=== PATIENT | male | born 1965 ===

== ENCOUNTER 2020-04-05 14:55 | Outpatient (REF) | payer MEDICARE, SELFPAY | END 2020-04-05 14:56 | disposition home or self-care (01) | LOC: HO.LAB 14:55 | PROVIDERS: Visit Provider Internal Medicine | DX: Z20.828 Contact with and (suspected) exposure to other viral communicable diseases (principal) | CPT/HCPCS: C9803; U0003 ==

== ENCOUNTER 2021-01-13 10:12 | Emergency (ER) | payer MEDICARE, MEDICAID, SELFPAY ==
[2021-01-13 10:23] VITALS: BP 149/98; PULSE 90; RESP 16; TEMP 37.1; O2SAT 96; BMI 27.8
--- NOTE | 2021-01-13 10:41 | ED_ITS ---
HPI - General Adult General Chief complaint: General Medical Stated complaint: swelling Time Seen by Provider: 01/13/21 10:41 Source: patient Mode of arrival: ambulatory Limitations: no limitations History of Present Illness HPI narrative: 56 year old male no known medical problems presents to the ED with 3 days of discomfort to his left groin. He states he feels a bump there that is very painful. He states it has been getting progressively worse over the past few days. He denies fevers, chills, shortness of breath, malise, chest pain, back pain, dysuria, urinary frequency/urgency. Onset (ago): day(s) (3) Related Data Previous Rx's Medication Instructions Recorded cephalexin 500 mg capsule 500 mg PO Q6H 10 Days #40 cap 01/13/21 doxycycline monohydrate 100 mg 100 mg PO BID 10 Days #20 cap 01/13/21 capsule oxycodone 5 mg tablet 5 mg PO Q6H PRN #10 tab 01/13/21 Allergies Allergy/AdvReac Type Severity Reaction Status Date / Time No Known Allergies Allergy Verified 01/13/21 10:19 [No Known Allergies*] Review of Systems Review of Systems: Constitutional : No Weight loss, No Fever, No Chills, No Night Sweats, No Fatigue, NoMalaise Cardiovascular : No Chest Pain, No SOB, No Dyspnea on Exertion, No Orthopnea, NoEdema, No Palpitations Respiratory : No Cough, No Sputum, No Wheezing, No Dyspnea Gastrointestinal : No Nausea, No Vomiting, No abdominal pain, No Diarrhea, Genitourinary : No irregular bleeding, No Dysuria, No Urinary Frequency, No Hematuria,No Urinary Incontinence, No Urgency, No Flank Pain Musculoskeletal : No joint pain, No Myalgias, No Joint Swelling, + left sided groin pain with swelling/redness Skin : No Skin Lesions, No rash Neuro : No Weakness, No Numbness, No Paresthesias, No Loss of Consciousness, NoDizziness, No Headache Heme/Lymph: No Bruising, No Bleeding,No Lymphadenopathy Endocrine : No Polyuria, No Polydipsia, No Temperature Intolerance Yes all other systems are reviewed and are negative [facility] Past Medical History Attestation statement: The following information was validated with the patient. Medical History HTN (hypertension) Social History Social History Alcohol intake: never Patient Tobacco Use Status: Current everyday Tobacco user Use of substances other than those prescribed or required for medical reasons: Yes Substance Use Type: Marijuana Substance Use Frequency: Occasionally Advance Directives: No Advance Directives Information Provided: No Physical Exam Vital Signs: Vital Signs: Last Vital Signs Temp 98.7 F 01/13/21 10:23 Pulse 90 01/13/21 10:23 Resp 16 01/13/21 10:23 BP 149/98 H 01/13/21 10:23 Pulse Ox 96 01/13/21 10:23 Body Mass Index 27.8 vital signs have been reviewed as normal and appeared to be correct. Blood pressure normal. Heart rate normal. Respiration rate normal. Temperature normal. Oxygen saturation normal. Appearance: Alert. Oriented X3. No acute distress. Head: Normal external exam. Normocephalic. Atraumatic. CVS: Normal heart rate and rhythm. Respiratory: No respiratory distress. Painless inspiration. Back: Full range of motion noted. Skin: Skin warm and dry. Normal skin color. Normal skin turgor. + fluctuant 2 cm x 2 cm area in the left groin with overlying erythema and calor. No streaking/induration/purulent drainage noted. No additional lesions/rashes/lacerations noted. Extremities: Extremities exhibit normal range of motion. Extremities nontender. Neuro: Oriented X 3. No motor deficit. No sensory deficit. No focal neuro deficits noted. Course Course Course Narrative: 1056- This is a 56-year-old male who presents to the emergency department from 3 days of left-sided groin pain and tenderness. Which has been progressively worsening. Upon physical examination there is a 2 cm x 2 cm fluctuant area, likely an abscess noted in the left groin region, with overlying erythema and calor. There is no streaking, and patient's vital signs are normal. This is likely a localized infection. Plan at this time is to do an incision and drainage. He will be started on Keflex and doxycycline. He will also be discharge him with these antibiotics. He has been instructed on warning signs such as fevers, chills, increasing redness, or tenderness to the area. He has been instructed to return emergency department new or worsening symptoms Procedures Abscess I/D Site: other (groin) Side (if applicable): left Local Anesthetic: lidocaine 1% Amount of anesthesia used (mL): 5 Technique: incised with blade Amount of fluid expressed (mL): 5 Sent for culture/gram staining?: No Irrigation: Yes Packing used?: none Complications: other (none) Medical Decision Making Medical Records Medical records reviewed: Yes I reviewed the patient's medical records. Discharge Plan Discharge Clinical Impression: Abscess Patient Disposition: Home, Self-Care Instructions: Abscess (ED), Abscess Incision and Drainage (DC), Incision and Drainage (ED) Additional Instructions: Take antibiotics as prescribed. Do not skip any doses. Doxycycline causes skin sensitivity, especially in the sun. Stay out of the sun. Drink plenty of fluids Change the dressing 2x a day Follow-up with your primary care provider Return to the emergency department new or worsening symptoms, or if he develops fevers, chills, worsening swelling, and/or tenderness to the area. Prescriptions: New doxycycline monohydrate 100 mg capsule 100 mg PO BID 10 Days Qty: 20 RF: 0 cephalexin 500 mg capsule 500 mg PO Q6H 10 Days Qty: 40 RF: 0 oxycodone 5 mg tablet 5 mg PO Q6H PRN (Reason: pain) Qty: 10 RF: 0 Referrals: Physician,Unknown J [Primary Care Provider] - 2 days (your pcp) Print Language: Tongan
[2021-01-13] MEDS: cephALEXin 500 MG CAPSULE PO (11:02)
[2021-01-13] MEDS: Lidocaine HCl 1 % MPF 5 ML VIAL SUBCUT (11:02)
--- NOTE | 2021-01-13 11:03 | PC.NURSE ---
patient a&ox3, medicated with po antibiotics, PA to administer lido to area.
== END 2021-01-13 12:10 | disposition home or self-care (01) ==
PROVIDERS: Emergency Provider Emergency Medicine Emergency Medical Services
DX: L02.214 Cutaneous abscess of groin (principal)
CPT/HCPCS: 10060; 99284

== ENCOUNTER 2021-08-16 18:39 | Emergency (ER) | payer MEDICARE, MEDICAID, SELFPAY ==
[2021-08-16 18:47] VITALS: BP 142/100; PULSE 113; RESP 16; TEMP 37.1; O2SAT 94
[2021-08-16 18:52] VITALS: BP 136/96; PULSE 112; RESP 18; TEMP 37.3; O2SAT 96; BMI 26.5
--- NOTE | 2021-08-16 19:13 | HO.SUDE ---
CARE Team met with pt to offer SUDE and substance use resources. Pt indicated that he would like to meet with a recovery analyst and get substance use resources.
--- NOTE | 2021-08-16 19:29 | MHC.RECOVSUP ---
? Reason for consult:Recovery Support o Current location:ED 17 o Identified substance use concern:Heroin - Overdose - Withdrawal - Seeking ATS (detox) - Support ? Intervention:P o Community resources provided o Harm reduction discussion ? Plan: o Referral to [facility] o Patient to follow up with [facility] after discharge ? Additional information:Patient refuses to go to detox.Gave patient community resources and referred patient to the [facility] and [facility]
[2021-08-16 19:30] VITALS: BP 140/95; PULSE 111; RESP 12; O2SAT 95
--- NOTE | 2021-08-16 19:31 | PC.NURSE ---
pt is alert and oriented. pt stated that he been sniffing heroin today, he report that he was kicked out of the program today. breathing equally unlabored. no signs of acute distress notice. pt on continuos cardiac monitoring. changed into safety gown. wanded by security
--- NOTE | 2021-08-16 19:38 | ED.OVERDOSE ---
HPI - Overdose General Chief Complaint: Overdose Stated Complaint: OVERDOSE Time Seen by Provider: 08/16/21 18:59 Source: patient and EMS Mode of arrival: EMS Limitations: no limitations History of Present Illness HPI Narrative: Patient comes to the emergency room complaining of an accidental overdose of heroin. Patient states he used about 4 bags of heroin around 16:00. [place], a bystander called 911. EMS gave him Narcan x2. Denies any other substance abuse. Patient states this was an accident, denies suicidal or homicidal ideation Related Data Previous Rx's Medication Instructions Recorded cephalexin 500 mg capsule 500 mg PO Q6H 10 Days #40 cap 01/13/21 doxycycline monohydrate 100 mg 100 mg PO BID 10 Days #20 cap 01/13/21 capsule oxycodone 5 mg tablet 5 mg PO Q6H PRN #10 tab 01/13/21 Allergies Allergy/AdvReac Type Severity Reaction Status Date / Time No Known Allergies Allergy Verified 01/13/21 10:19 [No Known Allergies*] Review of Systems Review of Systems: Constitutional : No Weight loss, No Fever, No Chills, No Night Sweats, No Fatigue, No Malaise, feeling somnolent ENT/Mouth : No Hearing loss, No Ear Pain, No Nasal Congestion, No Sinus Pain, No Hoarseness, No sore throat, No Rhinorrhea, No Swallowing Difficulty Eyes: No Eye Pain, No Swelling, No Redness, No Foreign Body, No Discharge, No Vision Changes Cardiovascular : No Chest Pain, No SOB, No Dyspnea on Exertion, No Orthopnea, No Edema, No Palpitations Respiratory : No Cough, No Sputum, No Wheezing, No Smoke Exposure, No Dyspnea Gastrointestinal : No Nausea, No Vomiting, No Diarrhea, No Constipation, No abdominal Pain, No Hematochezia, No Melena Genitourinary : no irregular bleeding, No Dysuria, No Urinary Frequency, No Hematuria, No Urinary Incontinence, No Urgency, No Flank Pain, No Urinary Flow Changes, No Hesitancy Musculoskeletal : No joint pain, No Myalgias, No Joint Swelling Skin : No Skin Lesions, No rash Neuro : No Weakness, No Numbness, No Paresthesias, No Loss of Consciousness, No Dizziness, No Headache Psych : No Anxiety/Panic, No Depression, No SI/HI/AH/VH, No Social Issues, Heme/Lymph: No Bruising, No Bleeding,No Lymphadenopathy Endocrine : No Polyuria, No Polydipsia, No Temperature Intolerance [facility] Past Medical History Medical History (Updated 08/16/21 @ 19:42 by Sweta Moore MD) HTN (hypertension) Substance abuse Social History Social History Alcohol intake: never Patient Tobacco Use Status: Current everyday Tobacco user Substance Use Type: Marijuana Advance Directives: No Advance Directives Information Provided: No Physical Exam Vital Signs: Vital Signs: Last Vital Signs Temp 99.1 F 08/16/21 18:52 Pulse 111 H 08/16/21 19:30 Resp 12 08/16/21 19:30 BP 140/95 H 08/16/21 19:30 Pulse Ox 95 08/16/21 19:30 BMI result Body Mass Index 26.5 Const: Other: Appearance: Alert. Oriented X3. No acute distress. Somnolent Eyes: Pupils equal, round and reactive to light. ENT: Pharynx normal. Neck: Normal inspection. Neck supple. No lymph nodes noted. No crepitus CVS: Normal heart rate and rhythm. Pulses normal. Normal S1 and S2 Respiratory: No respiratory distress. Breath sounds normal. No Wheezing. No rales Abdomen: Soft and nontender. No rigidity. No distention. Skin: Skin warm and dry. Normal skin color. Normal skin turgor. Extremities: No lower extremity edema. No Lacerations. No Rash Neuro: Oriented X 3. No motor deficit. No sensory deficit. Moving all extremities. No slurred speech. CN 2 through 12 grossly intact Psych: calm, cooperative, normal affect Course Course Course Narrative: The care team did the SUDE evaluation. Patient would like some resources, at this time he is not interested in detox. Patient was supposed to go to [facility] yesterday. Also, the motor coach bus driver spoke to the patient, he was given resources for a Suboxone clinic. Patient was given intranasal naloxone for home use. Patient has been in the emergency room for over 2 hours, patient remains alert, awake, oxygen saturation 95% on room air. Discharge Plan Discharge Clinical Impression: Drug overdose Patient Disposition: Home, Self-Care Instructions: Adult Overdose (ED) Additional Instructions: Please follow-up with your primary care physician tomorrow. If you have any worsening or new symptoms, please return to the emergency room or call 911 Prescriptions: No Action doxycycline monohydrate 100 mg capsule 100 mg PO BID 10 Days Qty: 20 0RF cephalexin 500 mg capsule 500 mg PO Q6H 10 Days Qty: 40 0RF oxycodone 5 mg tablet 5 mg PO Q6H PRN (Reason: pain) Qty: 10 0RF
[2021-08-16 21:33] VITALS: BP 159/97; PULSE 113; RESP 14; O2SAT 97
[2021-08-16] MEDS: Naloxone HCl Nasal TAKE HOME 4 MG SPRAY NOSTRILALT (21:34)
== END 2021-08-16 21:50 | disposition home or self-care (01) ==
PROVIDERS: Emergency Provider Emergency Medicine
DX: T40.1X1A Poisoning by heroin, accidental (unintentional), initial encounter (principal); F11.10 Opioid abuse, uncomplicated; Y92.521 Bus station as the place of occurrence of the external cause; I10 Essential (primary) hypertension
CPT/HCPCS: 99283; 99284

== ENCOUNTER 2024-05-06 11:07 | Emergency (ER) | payer MEDICARE, SELFPAY ==
[2024-05-06] VITALS (12 sets, daily range): BP systolic 164–230; BP diastolic 95–136; PULSE 71–89; RESP 10–20; TEMP 36.4–36.9; O2SAT 95–98; BMI 28.4
--- NOTE | 2024-05-06 11:48 | ED_ITS ---
HPI - General Adult General Chief complaint: Recheck/Abnormal Lab/Rx Stated complaint: High BP Time Seen by Provider: 05/06/24 16:03 Source: patient Mode of arrival: ambulatory Limitations: no limitations History of Present Illness ED Provider: Dr. Sweta Moore HPI narrative: Patient comes to the emergency room accompanied by staff from a residential program. According to the patient, he has noted that for the last few days, his blood pressure has been high. Patient states that he has been struggling with high blood pressure for several years. Patient states that approximately 3 weeks ago there were some changes to his medication. Patient is unsure if he has new medications or higher dose. Currently taking hydrochlorothiazide 12.5 mg and losartan 50 mg. Patient states that earlier today he had a bit of a headache but now it is gone, denies chest pain or shortness of breath, denies any lower extremity edema. Patient denies using drugs. Patient states that the last time he used heroin or cocaine was approximately 3 months ago. Related Data Previous Rx's ?Medication ?Instructions ?Recorded cephalexin 500 mg capsule 500 mg PO Q6H 10 days #40 caps 01/13/21 doxycycline monohydrate 100 mg 100 mg PO BID 10 days #20 caps 01/13/21 capsule oxycodone 5 mg tablet 5 mg PO Q6H PRN pain #10 tabs 01/13/21 hydrochlorothiazide 25 mg tablet 25 mg PO DAILY #30 tabs 05/06/24 labetalol 100 mg tablet 100 mg PO BID #60 tabs 05/06/24 Allergies Allergy/AdvReac Type Severity Reaction Status Date / Time No Known Allergies Allergy Verified 05/06/24 11:46 [No Known Allergies*] Review of Systems 2 Review of Systems: Constitutional : No Weight loss, No Fever, No Chills, No Night Sweats, No Fatigue, No Malaise ENT/Mouth : No Hearing loss, No Ear Pain, No Nasal Congestion, No Sinus Pain, No Hoarseness, No sore throat, No Rhinorrhea, No Swallowing Difficulty Eyes: No Eye Pain, No Swelling, No Redness, No Foreign Body, No Discharge, No Vision Changes Cardiovascular : No Chest Pain, No SOB, No Dyspnea on Exertion, No Orthopnea, No Edema, No Palpitations, complaining of high blood pressure. Respiratory : No Cough, No Sputum, No Wheezing, No Smoke Exposure, No Dyspnea Gastrointestinal : No Nausea, No Vomiting, No Diarrhea, No Constipation, No abdominal Pain, No Hematochezia, No Melena Genitourinary : no irregular bleeding, No Dysuria, No Urinary Frequency, No Hematuria, No Urinary Incontinence, No Urgency, No Flank Pain, No Urinary Flow Changes, No Hesitancy Musculoskeletal : No joint pain, No Myalgias, No Joint Swelling Skin : No Skin Lesions, No rash Neuro : No Weakness, No Numbness, No Paresthesias, No Loss of Consciousness, No Dizziness, No Headache Psych : No Anxiety/Panic, No Depression, No SI/HI/AH/VH, No Social Issues, Heme/Lymph: No Bruising, No Bleeding,No Lymphadenopathy Endocrine : No Polyuria, No Polydipsia, No Temperature Intolerance [facility] Past Medical History Medical History Substance abuse HTN (hypertension) Social History Social History Alcohol intake: never Patient Tobacco Use Status: Current everyday Tobacco user Smoked in Last 30 Days: Yes Use of substances other than those prescribed or required for medical reasons: Yes Substance Use Type: Heroin Substance Use Frequency: Daily Advance Directives: No Advance Directives Information Provided: Yes Physical Exam ED Vital Signs: Vital Signs - 24 hr 05/06/24 11:45 05/06/24 15:29 05/06/24 16:18 Temperature 98.3 F 98.4 F Pulse Rate 89 81 82 Respiratory Rate 16 16 Blood Pressure 195/116 H 210/125 H 230/136 H Pulse Oximetry 95 98 Oxygen Delivery Method Room Air Room Air 05/06/24 16:30 05/06/24 17:10 05/06/24 17:29 Temperature Pulse Rate 88 Respiratory Rate 20 Blood Pressure 222/134 H 199/136 H 192/118 H Pulse Oximetry 98 Oxygen Delivery Method 05/06/24 18:40 05/06/24 19:19 05/06/24 19:54 Temperature 98.3 F Pulse Rate 73 71 Respiratory Rate 10 L 11 L Blood Pressure 201/127 H 182/117 H 190/116 H Pulse Oximetry 97 96 Oxygen Delivery Method Room Air Room Air 05/06/24 20:47 Temperature Pulse Rate 71 Respiratory Rate Blood Pressure 187/110 H Pulse Oximetry Oxygen Delivery Method BMI result Body Mass Index 28.4 Const Other: Appearance: Alert. Oriented X3. No acute distress. Eyes: Pupils equal, round and reactive to light. ENT: Pharynx normal. Neck: Normal inspection. Neck supple. No lymph nodes noted. No crepitus CVS: Normal heart rate and rhythm. Pulses normal. Normal S1 and S2 Respiratory: No respiratory distress. Breath sounds normal. No Wheezing. No rales Abdomen: Soft and nontender. No rigidity. No distention. Skin: Skin warm and dry. Normal skin color. Normal skin turgor. Extremities: No lower extremity edema. No Lacerations. No Rash Neuro: Oriented X 3. No motor deficit. No sensory deficit. Moving all extremities. No slurred speech. CN 2 through 12 grossly intact Psych: calm, cooperative, normal affect Course Course Course Narrative: RME, this is a rapid medical exam performed by Dangelo tSevens please refer to primary provider for complete H&P- 59-year-old male presents for evaluation of high blood pressure. He was presenting from a program, his blood pressure today was 195/116 in triage. He reportedly took his blood pressure medication this morning. Per his records he was taking losartan, amlodipine, hydrochlorothiazide, as well as lisinopril. He complains of a mild headache Medications Administered Discontinued Medications Generic Name Dose Route Start Last Admin Trade Name Blasq PRN Reason Stop Dose Admin Amlodipine Besylate 10 mg 05/06/24 18:29 05/06/24 18:40 Amlodipine Besylate 10 Mg Tablet PO 05/06/24 18:30 10 mg ONCE ONE Administration Protocol Labetalol HCl 100 mg 05/06/24 16:13 05/06/24 16:18 Labetalol Hcl 100 Mg Tablet PO 05/06/24 16:14 100 mg ONCE ONE Administration Protocol Labetalol HCl 10 mg 05/06/24 19:54 05/06/24 20:47 Labetalol Hcl 100 Mg/20 Ml Vial IVPUSH 05/06/24 19:55 10 mg ONCE ONE Administration Medical Decision Making Medical Decision Making [facility] Narrative: My interpretation of EKG: Normal sinus rhythm, heart rate 80, no ST segment depression or elevation, no T-wave inversion, QTC 468 Patient states that he is compliant with his medications. Takes hydrochlorothiazide 12.5 mg and losartan 50 mg. Current blood pressure 210/125, states that the headache nearly resolved. Patient being given 100 mg p.o. labetalol. Discussed with the patient that if p.o. medications do not work, we may need IV meds and potentially admission/observation. Patient agrees with plan. My interpretation of labs: No significant abnormality in patient's hematology, chemistry, troponin negative. After p.o. metoprolol, patient's blood pressure did not improve at all, current blood pressure 192/118. Heart rate 88. Patient getting p.o. amlodipine. If this does not help patient's blood pressure, we will give IV meds Patient agrees with plan Patient's blood pressure initially improved but slowly went back to the 200s. Patient was given now IV labetalol, patient's blood pressure in the 200s, heart rate in the 80s Patient's blood pressure was 65/94. Patient asymptomatic. Patient ready for discharge. Patient will need additional blood pressure medications. Differential Diagnosis Differential Diagnoses: The differential diagnosis associated with the presentation includes (Chronic hypertension, hypertensive urgency) Admission/Observation Consideration of admission/observation: Escalation of care including admission/observation considered (Given patient's high blood pressure, observation/admission was considered) Lab Data MDM Lab Attestation statement: I reviewed the patient's lab results. 05/06/24 12:10 05/06/24 12:10 Labs: Lab Results 05/06/24 05/06/24 Range/Units 12:10 16:19 WBC 8.9 (4.8-10.8) X10*3/uL RBC 4.51 L (4.60-5.80) X10*6/uL Hgb 13.6 L (14.0-18.0) g/dl Hct 41.9 L (42.0-52.0) % MCV 92.9 (80.0-98.0) fL MCH 30.2 (27.0-33.0) pg MCHC 32.5 (31.0-36.0) g/dl RDW 11.6 (11.0-16.0) % Plt Count 237 (160-400) X10*3/uL MPV 10.1 (9.4-12.4) fL Immature Gran % (Auto) 0.3 (0.0-0.4) % Neut % (Auto) 66.2 (45-73) % Lymph % (Auto) 16.2 L (20-40) % [place] % (Auto) 8.3 (2-11) % Eos % (Auto) 8.3 H (0-4) % Baso % (Auto) 0.7 (0-2) % Lymph # (Auto) 1.4 (1.2-4.9) X10*3/uL [place] # (Auto) 0.7 (0.1-1.2) X10*3/uL Eos # (Auto) 0.7 H (0.0-0.4) X10*3/uL Baso # (Auto) 0.1 (0.0-0.2) X10*3/uL Abs Immat Gran (auto) 0.03 (0.00-0.03) X10*3/uL Absolute Neuts (auto) 5.9 (2.0-8.3) x10*3/uL Absolute Nucleated RBC 0.000 (0.0-0.012) X10*3/uL Nucleated RBC % (auto) 0.0 (0.0-0.2) /100WBC PT 11.5 (10.9-12.4) SEC INR 1.0 (0.9-1.1) Sodium 142 (135-145) mmol/L Potassium 4.8 (3.3-5.1) mmol/L Chloride 106 (96-108) mmol/L Carbon Dioxide 27 (22-29) mmol/L Anion Gap 14 (12-20) BUN 25 H (9-16) mg/dL Creatinine 1.43 H (0.5-1.4) mg/dL Estim Creat Clear Calc 49.1 Estimated GFR 51 Random Glucose 77 (60-115) mg/dL Calcium 8.9 (8.4-10.2) mg/dL Total Bilirubin 0.9 (0.0-1.0) mg/dL AST 26 (5-37) U/L ALT 21 (0-40) U/L Alkaline Phosphatase 107 (39-117) U/L Troponin I High Sens 3.6 (<3.5-35.0) ng/L Total Protein 7.6 (6.5-8.0) g/dL Albumin 4.0 (3.5-5.0) g/dL Urine Opiates Screen Not Detected (Not Detect) Ur Buprenorphine Scrn Not Detected (Not Detect) ng/mL Ur Oxycodone Screen Not Detected (Not Detect) ng/mL Urine Methadone Screen Positive H (Not Detect) ng/mL Urine Fentanyl Screen Not Detected (Not Detect) Ur Barbiturates Screen Not Detected (Not Detect) Ur Phencyclidine Scrn Not Detected (Not Detect) Ur Amphetamines Screen Not Detected (Not Detect) U Benzodiazepines Scrn Not Detected (Not Detect) Urine Cocaine Screen Not Detected (Not Detect) U Marijuana (THC) Screen Not Detected (Not Detect) Critical Care Time Critical Care Time Critical Care Time: Yes Total Critical Care Time: 75 Attestation: I have personally provided critical care time. Time includes review of lab data, radiology results, discussion with consultants, and monitoring for potential decompensation. Intervention performed as documented. Discharge Plan Discharge Clinical Impression: Chronic hypertension Patient Disposition: Home, Self-Care Instructions: Hypertension (ED) Additional Instructions: Increase hydrochlorothiazide to 25 mg daily, keep taking losartan as prescribed. Add labetalol 100 mg twice a day. You need close follow-up with your primary care physician. Make sure that you keep a log of your blood pressures to show your primary care physician. Please follow-up with your primary care physician tomorrow. If you have any worsening or new symptoms, please return to the emergency room or call 911 Prescriptions: New hydrochlorothiazide 25 mg tablet 25 mg PO DAILY Qty: 30 1RF labetalol 100 mg tablet 100 mg PO BID Qty: 60 0RF No Action doxycycline monohydrate 100 mg capsule 100 mg PO BID 10 Days Qty: 20 0RF cephalexin 500 mg capsule 500 mg PO Q6H 10 Days Qty: 40 0RF oxycodone 5 mg tablet 5 mg PO Q6H PRN (Reason: pain) Qty: 10 0RF Print Language: Polish
--- NOTE | 2024-05-06 11:51 | ECG_ITS ---
Test Reason : pain Blood Pressure : */* mmHG Vent. Rate : 80 BPM Atrial Rate : 80 BPM P-R Int : 154 ms QRS Dur : 80 ms QT Int : 406 ms P-R-T Axes : 66 64 99 degrees QTcB Int : 468 ms Normal sinus rhythm Minimal voltage criteria for LVH, may be normal variant ( Sokolow-Kumar ) Nonspecific ST and T wave abnormality Prolonged QT Abnormal ECG When compared with ECG of 01-Jul-2017 12:05, ST now depressed in Lateral leads Nonspecific T wave abnormality no longer evident in Anterior leads Nonspecific T wave abnormality now evident in Lateral leads Referred By: Kd Stevens Electronically Signed By: LEN AMEZQUITA
[2024-05-06 12:15] LABS: MANUAL DIFF FLAG NO
[2024-05-06 12:19] LABS: Basophils Absolute Auto 0.1 X10*3/uL (0.0-0.2); Basophils Percent Auto 0.7 % (0-2); Eosinophils Absolute Auto 0.7 X10*3/uL (0.0-0.4); Eosinophils Percent Auto 8.3 % (0-4); Hematocrit 41.9 % (42.0-52.0); Hemoglobin 13.6 g/dl (14.0-18.0); Imm Gran Abs Auto 0.03 X10*3/uL (0.00-0.03); Imm Gran Pct Auto 0.3 % (0.0-0.4); Lymphocytes Absolute Auto 1.4 X10*3/uL (1.2-4.9); Lymphocytes Percent Auto 16.2 % (20-40); Mean Corpuscular HGB Conc 32.5 g/dl (31.0-36.0); Mean Corpuscular Hemoglobin 30.2 pg (27.0-33.0); Mean Corpuscular Volume 92.9 fL (80.0-98.0); Mean Platelet Volume 10.1 fL (9.4-12.4); Monocytes Absolute Auto 0.7 X10*3/uL (0.1-1.2); Monocytes Percent Auto 8.3 % (2-11); Neutrophils Absolute Auto 5.9 x10*3/uL (2.0-8.3); Neutrophils Percent Auto 66.2 % (45-73); Platelet Count 237 X10*3/uL (160-400); Red Blood Count 4.51 X10*6/uL (4.60-5.80); Red Cell Distribution Width 11.6 % (11.0-16.0); White Blood Count 8.9 X10*3/uL (4.8-10.8)
[2024-05-06 12:22] LABS: Prothrombin Time 11.5 SEC (10.9-12.4)
[2024-05-06 12:36] LABS: Alanine Aminotransferase 21 U/L (0-40); Alkaline Phosphatase 107 U/L (39-117); Anion Gap 14 (12-20); Aspartate Amino Transferase 26 U/L (5-37); Bilirubin Total 0.9 mg/dL (0.0-1.0); Blood Urea Nitrogen 25 mg/dL (9-16); Calcium 8.9 mg/dL (8.4-10.2); Carbon Dioxide 27 mmol/L (22-29); Chloride 106 mmol/L (96-108); Creatinine Clr Calc Pharmacy 49.1; Estimated Glomerular Filt Rate 51; Glucose Random 77 mg/dL (60-115); Potassium 4.8 mmol/L (3.3-5.1); Sodium 142 mmol/L (135-145); Total Protein 7.6 g/dL (6.5-8.0)
[2024-05-06 12:39] LABS: Troponin-I High Sensitivity 3.6 ng/L (<3.5-35.0)
--- NOTE | 2024-05-06 15:57 | PC.NURSE ---
Pt NSR on laboratory monitor, significantly hypertensive. Reporting chest pain 10/14. Alert and oriented, breathing even and unlabored.
[2024-05-06] MEDS: Labetalol HCL 100 MG TABLET PO (16:18)
[2024-05-06 16:34] LABS: Amphetamine Screen Urine Not Detected (Not Detect); Barbiturates, Urine Not Detected (Not Detect); Benzodiazepines Screen Urine Not Detected (Not Detect); Buprenorphine Scr Not Detected (Not Detect); Cannabinoid Screen Urine Not Detected (Not Detect); Cocaine Screen Urine Not Detected (Not Detect); Fentanyl, urine Not Detected (Not Detect); Methadone Screen, Urine Positive (Not Detect); Opiate Screen Urine Not Detected (Not Detect); Oxycodone Screen Urine Not Detected (Not Detect); Phencyclidine Screen Urine Not Detected (Not Detect)
[2024-05-06] MEDS: amLODIPine Besylate 10 MG TABLET PO (18:40)
--- OUTSIDE RECORDS SUMMARY | 2024-05-06 19:19 | XMS_ITS ---
Author Organization [facility] Address [address], [place] [id number] Care Team Providers Care Director Of Medical Education Name Role Phone [facility]-Adult Medicine Primar y Care Provider Unavailable Maricarmen Best Unavailable [phone] [facility], Adult Medicine Clinic Unavailable Unava ilQuoc Cisneros Unavailable [phone] Medications Medication SIG (Take, Route, Frequency, Duration) Notes Start Date End Date Status loratadine 10 mg 1 tab(s) orally once a day for 30 day(s) 07/28/2017 Active traZODone 50 mg 1 tab(s) orally 3 ti mes a day Active Ventolin HFA 90 mcg/inh 2 puff(s) inhale d 4 times a day for 30 day(s) 07/28/2017 Active Singulair 10 mg 1 tab(s) orally once a day for 30 day(s) 07/28/2017 Active Flovent HFA CFC free 110 mcg/inh 2 puff(s) inhaled 2 times a day every day for 30 day(s) 07/28/2017 Acti ve Nicoderm C-Q Clear 21 mg/24 hr 1 PATCH transdermally once a day for 30 day(s) 07/28/2017 Active Metoprolol Tartrate 50 mg 1 tab(s) orall y 2 times a day for 30 day(s) Active amLODIPine 10 mg 1 tab(s) orally once a day for 30 day(s) Active Encounters Encounter Location Date Provider Diagnosis [facility] [address] [place] [phone] 09/11/2023 Quoc Orta Plan Of Treatment No Information Progress Notes * Louis WAYNEDOB:1964 (58 yo M)Acc No.[id number]:09/11/2023 Case Management Patient:Louis De La Torre Provider:?Quoc Guo :1965???Age:58 Y???Sex:Male Jake e:09/11/2023 Address:[address] [place] [address] Pcp:[facility]Ad ult Medicine [facility] Subjective: * Chief Complaints: * ??? * HPI: ???Social Service:?Date of encounter?09/11/23.?Referral Source?walk-in, self.?Interpretation for medical provider?housing.?Follow-up Required:?yes.?Pt comprehension?Pt agrees with plan, Patient understood process and assisted with process.?Action taken (old)?NONE.? * Medical History:? * Medications:?Taking traZODon e 50 mg tablet 1 tab(s) orally 3 times a day , Taking loratadine 10 mg tablet 1 tab(s) orally once a day , Taking Nicoderm C-Q Clear 21 mg/24 hr film, extended release 1 PATCH transdermally once a day , Taking Metoprolol Tartrate 50 mg tablet 1 tab(s) orally 2 times a day , Taking amLODIPine 10 mg tablet 1 tab(s) orally once a day , Taking Ventolin HFA 90 mcg/inh aerosol 2 puff(s) inhaled 4 times a day , Taking Flovent HFA CFC free 110 mcg/inh aerosol 2 puff(s) inhaled 2 times a day every day , Taking Singulair 10 mg tablet 1 tab(s) orally once a day Objective: Assessment: Plan: * Treatment: * Images: Billing Information: * Visit Code:? * Procedure Codes:? Care Plan Details* * Sign off status: Completed true * Provider:?Quoc Guo Date:?09/11/2023 Generated for Javi oconnell/Cynthia/Francisco on:?05/06/2024 07:19 PM EST History and Physical Notes * HPI (History of Present Illness) Category Sub-Category Detail Notes Social Service Referral Source walk-in, self Interpretation for medical provider hous ing Action taken (old) NONE Follow-up Required: yes Pt comprehension Pt agrees with plan, Patient understood process and assisted with process Date of encounter 09/11/23
--- OUTSIDE RECORDS SUMMARY | 2024-05-06 19:19 | XMS_ITS ---
Author Organization [facility] Address [address], [place] [phone] Care Team Providers Care Assistant Professor Of Radiology Name Role Phone [facility], [facility]-Adult Medicine Primar y Care Provider Unavailable Maricarmen Best Unavailable [phone] [facility], Adult Medicine Clinic Unavailable Unava ilKristie Charles Unavailable Encounters Encounter Location Date Provider Diagnosis [facility] [address] [place] [phone] 01/28/2024 Kristie Galo Plan Of Treatment No Information Progress Notes * WAYNE LouisDOB:1964 (59 yo M)Acc No.[id number]:01/28/2024 Case Management Patient:?TONE Louis Provider:?Kristie Galo :1965???Age:59 Y???Sex:Male Jake e:01/28/2024 Address:[address] [place], [place] [phone] Pcp:[facility]-Ad ult Medicine [facility] Subjective: * Chief Complaints: * ??? * Medical History:? Objective: Assessment: Plan: * Treatment: * Images: Billing Information: * Visit Code:? * Procedure Codes:? Care Plan Details* * Electronic signature of Danilo Galo on 05/06/2024 at 07:19 PM EST Sign off status: Pending * Provider:Ez Galo Date:? Generated for Javi oconnell/Cynthia/eTransmitting on:?05/06/2024 07:19 PM EST
--- OUTSIDE RECORDS SUMMARY | 2024-05-06 19:19 | XMS_ITS ---
Author Organization [facility] Address [address] [place], [place] [phone] Care Team Providers Care Spout Liner Helper Name Role Phone [facility]-Adult Medicine Primar y Care Provider Unavailable Maricarmen Best Unavailable [phone] [facility], Adult Medicine Clinic Unavailable Sammieva Kristie Parker Unavailable REASON FOR VISIT make appoiment Medications Medication SIG (Take, Route, Frequency, Duration) Notes Start Date End Date Status Singulair 10 mg 1 tab(s) orally once a day for 30 day(s) 07/28/2017 Active Metoprolol Tartrate 50 mg 1 tab(s) orall y 2 times a day for 30 day(s) Active Ventolin HFA 90 mcg/inh 2 puff(s) inhale d 4 times a day for 30 day(s) 07/28/2017 Active Flovent HFA CFC free 110 mcg/inh 2 puff(s) inhaled 2 times a day every day for 30 day(s) 07/28/2017 Acti ve amLODIPine 10 mg 1 tab(s) orally once a day for 30 day(s) Active Nicoderm C-Q Clear 21 mg/24 hr 1 PATCH transdermally once a day for 30 day(s) 07/28/2017 Active traZODone 50 mg 1 tab(s) orally 3 ti mes a day Active loratadine 10 mg 1 tab(s) orally once a day for 30 day(s) 07/28/2017 Active Encounters Encounter Location Date Provider Diagnosis [facility] [address] [place] [phone] 01/27/2024 Kristie Galo Plan Of Treatment No Information Progress Notes * Louis WAYNEDOB:1964 (59 yo M)Acc No.[id number]:01/27/2024 Case Management Patient:?Louis Wayne Provider:?Kristie Galo :1965???Age:59 Y???Sex:Male Jake e:01/27/2024 Address:[address] [place] [address], [place] [address] Pcp:[facility]-Ad ult Medicine [facility] Subjective: * Chief Complaints: * ???1. Make appoiment. * HPI: ???Social Service:?Date of encounter?01/27/2024.?Referral Source?walk-in, self.?Interpretation for medical provider?Make Appoimenth.?Advocacy?none.?Follow-up Required:?yes.?Pt comprehension?Pt agrees with plan, Patient understood process and assisted with process.?Action taken (old)?form completion, Letter given to patient after photo copy made.? * Medical History:? * Medications:?Taking traZODon e [...] * Sign off status: Completed true * Provider:?Kristie Galo Date:? Generated for Javi oconnell/Cynthia/Francisco on:?05/06/2024 07:18 PM EST History and Physical Notes * HPI (History of Present Illness) Category Sub-Category Detail Notes Social Service Referral Source walk-in, self Interpretation for medical provider Make Appoimenth Action taken (old) form completion, Let ter given to patient after photo copy made Advocacy none Follow-up Required: yes Pt comprehension Pt agrees with plan, Patient understood process and assisted with process Date of encounter 01/27/2024
--- NOTE | 2024-05-06 19:59 | PC.NURSE ---
bp 190/116 HR [address] diane aware awaiting new orders pt denies chest pain at this time
[2024-05-06] MEDS: Labetalol HCL 100 MG/20 ML VIAL 10 MG IVPUSH (20:47)
== END 2024-05-06 22:19 | disposition home or self-care (01) ==
PROVIDERS: Physician Assistant; Emergency Provider Emergency Medicine
DX: R51.9 Headache, unspecified (principal); I10 Essential (primary) hypertension; R07.9 Chest pain, unspecified; F19.10 Other psychoactive substance abuse, uncomplicated; F17.200 Nicotine dependence, unspecified, uncomplicated; Z79.899 Other long term (current) drug therapy
CPT/HCPCS: 36415; 80053; 80307; 84484; 85025; 85610; 93005; 96374; 99285; J1920

== ENCOUNTER → 2024-05-06 11:51 | Outpatient (BNV) | payer MEDICARE, SELFPAY | PROVIDERS: Emergency Provider Emergency Medicine; Visit Provider Internal Medicine | DX: R94.31 Abnormal electrocardiogram [ECG] [EKG] (principal) | CPT/HCPCS: 93010 ==

== ENCOUNTER 2024-09-21 13:44 | Inpatient (IN) | payer OTHER, SELFPAY ==
[2024-09-21 13:58] VITALS: BP 126/72; PULSE 102; RESP 18; TEMP 36.9; O2SAT 99; BMI 23.8
[2024-09-21 14:22] LABS: MANUAL DIFF FLAG NO
[2024-09-21 14:23] LABS: Hematocrit 38.8 % (42.0-52.0); Hemoglobin 12.8 g/dl (14.0-18.0); Mean Corpuscular Hemoglobin 29.4 pg (27.0-33.0); Mean Corpuscular Volume 89.2 fL (80.0-98.0); Red Blood Count 4.35 X10*6/uL (4.60-5.80); White Blood Count 9.4 X10*3/uL (4.8-10.8)
[2024-09-21 14:24] LABS: Basophils Percent Auto 0.3 % (0-2); Eosinophils Absolute Auto 0.2 X10*3/uL (0.0-0.4); Eosinophils Percent Auto 2.6 % (0-4); Imm Gran Abs Auto 0.04 X10*3/uL (0.00-0.03); Imm Gran Pct Auto 0.4 % (0.0-0.4); Lymphocytes Absolute Auto 1.1 X10*3/uL (1.2-4.9); Lymphocytes Percent Auto 11.6 % (20-40); Monocytes Absolute Auto 0.5 X10*3/uL (0.1-1.2); Monocytes Percent Auto 5.1 % (2-11); Neutrophils Absolute Auto 7.5 x10*3/uL (2.0-8.3); Platelet Count 362 X10*3/uL (160-400); Red Cell Distribution Width 11.9 % (11.0-16.0)
[2024-09-21 14:38] LABS: Alanine Aminotransferase 16 U/L (0-40); Albumin Level 4.2 g/dL (3.5-5.0); Alkaline Phosphatase 128 U/L (39-117); Anion Gap 13 (12-20); Aspartate Amino Transferase 21 U/L (5-37); Bilirubin Total 0.6 mg/dL (0.0-1.0); Blood Urea Nitrogen 32 mg/dL (9-16); Carbon Dioxide 26 mmol/L (22-29); Chloride 107 mmol/L (96-108); Creatinine Clr Calc Pharmacy 24.8; Estimated Glomerular Filt Rate 26; Glucose Random 92 mg/dL (60-115); Potassium 5.3 mmol/L (3.3-5.1); Sodium 141 mmol/L (135-145); Total Protein 7.6 g/dL (6.5-8.0)
--- NOTE | 2024-09-21 15:01 | ED_ITS ---
HPI - General Adult General Chief complaint: Skin/Abscess/Foreign Body Stated complaint: Right arm cyst/ Infection Time Seen by Provider: 09/21/24 15:01 Source: patient Mode of arrival: ambulatory Limitations: no limitations History of Present Illness ED Provider: Leandro High PA-C HPI narrative: Patient is a 59 year old assigned male at with a history of IVDA presenting to the emergency department today with right arm abscesses. Patient states that he recently began using IV drugs again and is shooting into his right arm. Patient states that he noticed over the last week he [place] had increased swelling to the area. Patient denies any dizziness, lightheadedness, abdominal pain, nausea, vomiting, fever, chills, blurry vision, double vision, loss of vision, chest pain, difficulty breathing, shortness of breath, back pain, night sweats, pain with urination, increased urinary frequency, increased urinary urgency, blood in his urine or stool, syncope or a near syncopal episode, recent trauma or falls, bowel incontinence, bladder incontinence, or any other complaints at this time. Onset (ago): week(s) (1) Relieving factors: none Exacerbating factors: none Associated symptoms: denies other symptoms Treatments prior to arrival: none Related Data Previous Rx's ?Medication ?Instructions ?Recorded cephalexin 500 mg capsule 500 mg PO Q6H 10 days #40 caps 01/13/21 doxycycline monohydrate 100 mg 100 mg PO BID 10 days #20 caps 01/13/21 capsule oxycodone 5 mg tablet 5 mg PO Q6H PRN pain #10 tabs 01/13/21 hydrochlorothiazide 25 mg tablet 25 mg PO DAILY #30 tabs 05/06/24 labetalol 100 mg tablet 100 mg PO BID #60 tabs 05/06/24 Allergies Allergy/AdvReac Type Severity Reaction Status Date / Time No Known Allergies Allergy Verified 09/21/24 14:02 [No Known Allergies*] Review of Systems 2 Constitutional: Constitutional: Reports no additional constitutional complaints, Denies chills, Denies fever(s) and Denies night sweats Eyes: Eyes: Reports no additional eye complaints, Denies blurry vision, Denies change in vision, Denies diplopia, Denies eye discharge, Denies loss of vision and Denies eye pain ENT: Denies dizziness Cardiovascular: Cardiovascular: Reports no additional cardiovascular complaints, Denies chest pain, Denies lightheadedness, Denies Loss of Consciousness and Denies dyspnea Respiratory: Respiratory: Reports no additional respiratory complaints and Denies dyspnea Gastrointestinal: Gastrointestinal: Reports no additional gastrointestinal complaints, Denies abdominal pain, Denies melena, Denies hematochezia, Denies change in bowel habits and Denies change in stool character Genitourinary: Genitourinary: Reports no additional male genitourinary complaints, Denies hematuria, Denies oliguria, Denies difficulty urinating, Denies dysuria, Denies urinary frequency, Denies urinary hesitancy, Denies urinary incontinence and Denies urinary urgency Musculoskeletal: Musculoskeletal: Reports no additional musculoskeletal complaints, Denies numbness and Denies tingling Comments: right arm swelling / pain Neurologic: Denies dizziness, Denies loss of vision, Denies numbness and Denies tingling Psychiatric: Psychiatric: Reports no additional psychiatric complaints Endocrine: Endocrine: Reports no additional endocrine complaints Hematologic/Lymphatic: Hematologic/Lymphatic: Reports no additional hematologic/lymphatic complaints Allergic/Immunologic: Allergic/Immunologic: Reports no additional allergic/immunologic complaints PMFSH Past Medical History Attestation statement: The following information was validated with the patient. Source: old records reviewed and nursing notes reviewed Medical History Substance abuse HTN (hypertension) Social History Social History Alcohol intake: never Patient Tobacco Use Status: Current everyday Tobacco user Use of substances other than those prescribed or required for medical reasons: Yes Substance Use Type: Crack/Cocaine Advance Directives: No Advance Directives Information Provided: Yes Do you have a plan to hurt others: No Plan Physical Exam ED Vital Signs: Vital Signs - 24 hr 09/21/24 13:58 Temperature 98.4 F Pulse Rate 102 H Respiratory Rate 18 Blood Pressure 126/72 Pulse Oximetry 99 Oxygen Delivery Method Room Air BMI result Body Mass Index 23.8 Const General: cooperative, no acute distress, alert and awake Nutritional Appearance: well nourished Orientation/consciousness: patient oriented x3 HENMT Head: Yes normal to inspection and Yes atraumatic Ears: hearing grossly normal bilaterally and external ears normal General nose exam: Normal external nose present, no nasal discharge noted and no epistaxis Face and sinus: Yes normal facial exam, No abrasion and No laceration Mouth: Normal oral and palatal mucosa present, no drooling and no muffled voice Eyes General: appearance normal, both eyes and all related structures Periorbital: periorbital findings normal Eyelids: Yes eyelids normal Conjunctivae: conjunctivae normal Pupils: Equal, round and reactive pupils present EOM: EOMs intact bilaterally Neck Neck: Yes normal visual inspection, Yes full ROM and Yes no lymphadenopathy Resp Effort & Inspection: normal respiratory effort and able to speak in complete sentences Neuro General: patient oriented x3, moves all extremities and CN's II-XI intact bilaterally Cranial nerves: Yes Equal, round and reactive pupils present Cognition (Neuro): normal cognition Extrem Other: General: Yes full ROM and Yes capillary refill normal Psych Appearance: grossly normal Mental Status: mental status grossly normal Affect: normal affect Attitude: cooperative Thought process: Normal thought process present Thought content: Normal thought content present Insight: Good insight present (Psych) Medications Administered Generic Name Dose Route Start Last Admin Trade Name Freq PRN Reason Stop Dose Admin Sodium Chloride 1,000 mls @ 999 mls/hr 09/21/24 15:30 09/21/24 15:51 Ns IV 09/21/24 16:30 999 mls/hr .Q1H1M FRANCESCA Administration Discontinued Medications Generic Name Dose Route Start Last Admin Trade Name Freq PRN Reason Stop Dose Admin Piperacillin Sod/Tazobactam 50 mls @ 100 mls/hr 09/21/24 15:04 09/21/24 15:46 Sod 3.375 gm/ Sodium Chloride IV 09/21/24 15:33 100 mls/hr ONCE ONE Administration Medical Decision Making Medical Decision Making [facility] Narrative: Patient is a 59 year old assigned male at with a history of IVDA presenting to the emergency department today with right arm abscesses. Patient's physical exam was as noted in the physical exam portion of this note. Patient's blood work showed neut % of 80, ESR 38, CRP of 3.77, potassium of 5.3, BUN of 32, and CR of 2.53. Patient has obvious abscess(es) in the right antecubital fossa. Patient has evidence of an GUS. Patient was given IV vancomycin and zosyn. I spoke with the hospitalist team who agreed to admission. Patient's clinical presentation is not consistent with sepsis (@1600). I explained my physical exam findings as well as all test results to the patient. I answered all questions asked by the patient. I offered the patient Suboxone or Methadone and he declined at this time. Patient verbalized agreement and understanding with this treatment plan and admission. Differential Diagnosis Differential Diagnoses: The differential diagnosis associated with the presentation includes Abscess GUS IVDU Admission/Observation Consideration of admission/observation: Escalation of care including admission/observation considered Patient admitted as noted in the MDM Rationale portion of this note. Consult Healthcare Provider Management of the patient was discussed with: Hospitalist (Agreed to admission as noted in the MDM Rationale portion of this note. ) Lab Data [facility] Lab Attestation statement: I reviewed the patient's lab results. My interpretation of these results are in the MDM Rationale portion of this note. 09/21/24 14:18 09/21/24 14:18 Labs: Lab Results 09/21/24 09/21/24 Range/Units 14:18 15:23 WBC 9.4 (4.8-10.8) X10*3/uL RBC 4.35 L (4.60-5.80) X10*6/uL Hgb 12.8 L (14.0-18.0) g/dl Hct 38.8 L (42.0-52.0) % MCV 89.2 (80.0-98.0) fL MCH 29.4 (27.0-33.0) pg MCHC 33.0 (31.0-36.0) g/dl RDW 11.9 (11.0-16.0) % Plt Count 362 D (160-400) X10*3/uL MPV 9.0 L (9.4-12.4) fL Immature Gran % (Auto) 0.4 (0.0-0.4) % Neut % (Auto) 80.0 H (45-73) % Lymph % (Auto) 11.6 L (20-40) % [place] % (Auto) 5.1 (2-11) % Eos % (Auto) 2.6 (0-4) % Baso % (Auto) 0.3 (0-2) % Lymph # (Auto) 1.1 L (1.2-4.9) X10*3/uL [place] # (Auto) 0.5 (0.1-1.2) X10*3/uL Eos # (Auto) 0.2 (0.0-0.4) X10*3/uL Baso # (Auto) 0.0 (0.0-0.2) X10*3/uL Abs Immat Gran (auto) 0.04 H (0.00-0.03) X10*3/uL Absolute Neuts (auto) 7.5 (2.0-8.3) x10*3/uL Absolute Nucleated RBC 0.000 (0.0-0.012) X10*3/uL Nucleated RBC % (auto) 0.0 (0.0-0.2) /100WBC ESR 38 H (0-15) MM/HR Sodium 141 (135-145) mmol/L Potassium 5.3 H (3.3-5.1) mmol/L Chloride 107 (96-108) mmol/L Carbon Dioxide 26 (22-29) mmol/L Anion Gap 13 (12-20) BUN 32 H (9-16) mg/dL Creatinine 2.53 H (0.5-1.4) mg/dL Estim Creat Clear Calc 24.8 Estimated GFR 26 Random Glucose 92 (60-115) mg/dL Lactic Acid 0.9 (0.5-2.0) mmol/L Calcium 9.0 (8.4-10.2) mg/dL Total Bilirubin 0.6 (0.0-1.0) mg/dL AST 21 (5-37) U/L ALT 16 (0-40) U/L Alkaline Phosphatase 128 H (39-117) U/L C-Reactive Protein 3.77 H (< or = 0.50) mg/dL Total Protein 7.6 (6.5-8.0) g/dL Albumin 4.2 (3.5-5.0) g/dL Critical Care Time Critical Care Time Critical Care Time: Yes Total Critical Care Time: 38 Attestation: I spent 38 minutes of Critical Care Time with this patient. This does not include time spent on separately reported billable procedures. Discharge Plan Discharge Clinical Impression: GUS (acute kidney injury), Abscess, IVDU (intravenous drug user) Patient Disposition: Admitted As Inpatient Prescriptions: No Action doxycycline monohydrate 100 mg capsule 100 mg PO BID 10 Days Qty: 20 0RF cephalexin 500 mg capsule 500 mg PO Q6H 10 Days Qty: 40 0RF oxycodone 5 mg tablet 5 mg PO Q6H PRN (Reason: pain) Qty: 10 0RF hydrochlorothiazide 25 mg tablet 25 mg PO DAILY Qty: 30 1RF labetalol 100 mg tablet 100 mg PO BID Qty: 60 0RF Print Language: Khmer
[2024-09-21 15:19] LABS: C Reactive Protein 3.77 mg/dL (< or = 0.50)
[2024-09-21 15:46] LABS: Lactic Acid 0.9 mmol/L (0.5-2.0)
[2024-09-21] MEDS: Piperacillin Sodium/Tazobactam 3.375 GM in 0.9 % Sodium Chloride 50 ML IV (15:46)
[2024-09-21 15:51] LABS: Erythrocyte Sedimentation Rate 38 MM/HR (0-15)
[2024-09-21] MEDS: 0.9 % Sodium Chloride 1,000 ML 999 ML IV (15:51)
--- NOTE | 2024-09-21 15:56 | PM.IMHP ---
History of Present Illness Date of Service: 09/21/24 Chief Complaint: Abscess, Acute kidney injury A 59 yeats old male with PMH of IVDU on Methadone, HTN who presents to the hospital with right forearm abscess that developed over the last week. He states he started using recently. noted pain and erythema in his arm with worsening feeling of pain and chills. denies No chest pain, palpitations, SOB, nausea, vomiting, diarrhea or urinary symptoms. He is on MEthadone daily. pain under fair control. In ED found to have worsening kidney function from baseline. Admitted for further work up and management. Review of Systems Review of Systems: No fever, mild chills but no weakness No chest pain, palpitation No shortness of breath or coughing No abdominal pain, nausea or vomiting No urinary symptoms Right upper extremity rash with abscess PMFSH Medical History Substance abuse HTN (hypertension) Social History Alcohol intake: never Patient Tobacco Use Status: Current everyday Tobacco user Use of substances other than those prescribed or required for medical reasons: Yes Substance Use Type: Crack/Cocaine Advance Directives: No Advance Directives Information Provided: Yes Do you have a plan to hurt others: No Plan Meds Allergies Allergy/AdvReac Type Severity Reaction Status Date / Time No Known Allergies Allergy Verified 09/21/24 14:02 [No Known Allergies*] Active Medications: Current Medications Vancomycin HCl 1,000 mg/ (Sodium Chloride) 270 mls @ 270 mls/hr IV ONCE ONE Stop: 09/21/24 16:03 Sodium Chloride (Ns) 1,000 mls @ 999 mls/hr IV .Q1H1M FRANCESCA Stop: 09/21/24 16:30 Last Admin: 09/21/24 15:51 Dose: 999 mls/hr Home Medications ?Medication ?Instructions ?Recorded ?Confirmed ?Last Taken ?Type amlodipine 10 mg tablet 10 mg PO DAILY 09/21/24 09/21/24 Unknown History lisinopril 20 mg tablet 20 mg PO DAILY 09/21/24 09/21/24 Unknown History losartan 50 mg tablet 50 mg PO DAILY 09/21/24 09/21/24 Unknown History trazodone 150 mg tablet 150 mg PO BEDTIME 09/21/24 09/21/24 Unknown History Physical Exam Vital Signs and Narrative: Vital Signs: Last Vital Signs Temp 98.4 F 09/21/24 13:58 Pulse 102 H 09/21/24 13:58 Resp 18 09/21/24 13:58 BP 126/72 09/21/24 13:58 Pulse Ox 99 09/21/24 13:58 O2 Del Method Room Air 09/21/24 13:58 BMI result Body Mass Index 23.8 Const: Other: Constitutional : Awake, interactive, not in distress Neck : Normal inspection, Supple Cardiovascular : RRR, no JVP, no lower extremity edema Respiratory : good bilateral air entry, no crackles, wheezes or rhonchi Gastrointestinal: soft, lax, Normal bowel sounds, Non tender Skin : Warm, Dry, 2 small abscess with surrounding erythema, no pus formation Neurological : Alert & oriented x3, No focal deficit Results Labs 09/21/24 14:18 09/21/24 14:18 Labs: Laboratory Results - last 24 hr 09/21/24 09/21/24 14:18 15:23 MCV 89.2 MCH 29.4 MCHC 33.0 RDW 11.9 Plt Count 362 D MPV 9.0 L Immature Gran % (Auto) 0.4 Neut % (Auto) 80.0 H Lymph % (Auto) 11.6 L [place] % (Auto) 5.1 Eos % (Auto) 2.6 Baso % (Auto) 0.3 Lymph # (Auto) 1.1 L [place] # (Auto) 0.5 Eos # (Auto) 0.2 Baso # (Auto) 0.0 Abs Immat Gran (auto) 0.04 H Absolute Neuts (auto) 7.5 Absolute Nucleated RBC 0.000 Nucleated RBC % (auto) 0.0 ESR 38 H Anion Gap 13 Estim Creat Clear Calc 24.8 Estimated GFR 26 Random Glucose 92 Lactic Acid 0.9 Calcium 9.0 Total Bilirubin 0.6 AST 21 ALT 16 Alkaline Phosphatase 128 H C-Reactive Protein 3.77 H Total Protein 7.6 Albumin 4.2 Assessment and Plan (1) Cellulitis and abscess of upper extremity: Status: Acute (2) Acute kidney injury superimposed on CKD: Status: Acute (3) Acute hyperkalemia: Status: Acute Plan A 59 yeats old male with PMH of IVDU on Methadone, HTN who presents to the hospital with right forearm abscess that developed over the last week. RUE cellulitis and abscess broad spectrum antibiotics follow cultures elevate arm cold compressors consult surgery if needed for drainage Vancomycin trough GUS on CKD3 with acute hyperkalemia Cr 2.5 from 1.4 in Apr 2024 K of 5.3 give Lokelma IVF Hold nephrotoxic meds I\O follow BMP Opioids and Cocain abuse monitor for [facility] addiction team eval HTN did not fill medications in months, monitor for now DVT PPx Lovenox The patient will need 2 overnight hospital stay for IV Abx and IV fluids for GUS pending final cultures. Quality Stroke Does the patient have a stroke diagnosis?: No VTE Prior VTE?: No VTE Risk Level:: Medical - moderate - high VTE Device Contraindication: Treatment Not Indicated VTE Drug Contraindication: N/A - Med Ordered
--- OUTSIDE RECORDS SUMMARY | 2024-09-21 16:41 | XMS_ITS | Patient Health Record ---
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 Role Phone [facility]-Adult Medicine Primar y Care Provider Unavailable Maricarmen Best Unavailable [phone] [facility] [place] [place] [facility] Unavailable Unava ilable Kristie Galo Unavailable Reason For Referral No Information Medications Medication SIG (Take, Route, Frequency, Duration) Notes Start Date End Date Status Singulair 10 mg 1 tab(s) orally once a day for 30 day(s) 07/28/2017 Active Nicoderm C-Q Clear 21 mg/24 hr 1 PATCH transdermally once a day for 30 day(s) 07/28/2017 Active Metoprolol Tartrate 50 mg 1 tab(s) orall y 2 times a day for 30 day(s) Active traZODone 50 mg 1 tab(s) orally 3 ti mes a day Active loratadine 10 mg 1 tab(s) orally once a day for 30 day(s) 07/28/2017 Active Ventolin HFA 90 mcg/inh 2 puff(s) inhale d 4 times a day for 30 day(s) 07/28/2017 Active Flovent HFA CFC free 110 mcg/inh 2 puff(s) inhaled 2 times a day every day for 30 day(s) 07/28/2017 Acti ve amLODIPine 10 mg 1 tab(s) orally once a day for 30 day(s) Active Immunizations Vaccine Route Administration Date Status Comme nts Pneumococcal Unknown 12/13/2008 Administered Influenza IM Intramuscular 02/02/2009 Administered H1N1 Influenza IM Intramuscular 02/02/2009 Administered PPD planted ID Intradermal 02/02/2009 Administered PPD planted ID Intradermal 02/20/2009 Administered PPD negative Unknown 02/23/2009 Administered Influenza: Declined Unknown 02/05/2010 Administered PPD offered and declined Unknown 02/05/2010 Administere d PPD offered and declined Unknown 12/24/2010 Administere d Influenza Unknown 2011 Administered Td offered and declined Unknown 03/25/2011 Administered PPD planted Unknown 03/25/2011 Administered PPD planted ID Intradermal 12/05/2011 Administered PPD negative Unknown 12/10/2011 Administered PPD offered and declined Unknown 12/25/2011 Administere d Fluvirin IM Intramuscular 04/23/2012 Administered Tdap IM Intramuscular 06/17/2012 Administered Influenza Unknown 03/20/2013 Administered Influenza IM Intramuscular 01/25/2014 Administered Hepatitis A Unknown 09/06/2004 Administered Influenza Unknown 07/10/2017 Administered PPSV 23 Unknown 07/10/2017 Administered Social History Tobacco Use: Social History Observation Description Date Details (start date - stop date) Current Smoker NA - NA Tobacco Use Assessment MU Question Answer Notes What is your current smoking status? current smo ker How often do you smoke? every day How many cigarettes a day do you smoke? 5 or les s How soon after you wake up d o you smoke your first cigarette? after 60 minutes Are you interested in quitting? thinking about q uitting Patient counseled on the demond diops of tobacco use and advised to quit: 01/18/2016 Problems Problem Type SNOMED Code ICD Code Onset Dates Problem Status W/U Status Risk Notes Problem Chronic hepatitis C (414169484) Chronic viral hepatitis C (B18.2) Active confirmed Problem Opioid abuse (3181416) Opioid abuse, uncomplicated (F11.10) Active confirmed Problem Tobacco user (097881660) Nicotine dependence, cigarettes, uncomplicated (F17.210) Active confirmed Problem Essential hypertension (22415526) Essential (primary) hypertension (I10) Active confirmed Problem Allergic rhinitis (18597786) Allergic rhinitis, unspecified (J30.9) Active confirmed Problem Acute exacerbation of moderate persistent asthma (241521233943864 ) Moderate persistent asthma with (acute) exacerbation (J45.41) Active confirmed Problem Chronic kidney disease (354432384) Chronic kidney disease, unspecified (N18.9) Active confirmed Problem Homeless (58176308) Homelessness (Z59.0) Active confirmed Encounters Encounter Location Date Provider Diagnosis [facility] [address] [place] [address] [phone] 01/27/2024 Kristie Galo Plan Of Treatment Pending Test Test Name Order Date chest x-ray PA 02/20/2009 PPD (Tuberculosis skin test) 06/04/2013 Insurance Providers Payer Name Payer Address Payer Phone Subscriber Number Group Number Insured Name Patient Relationship to Insured Coverage Start Date Coverage End Date [place] [employer] [address] [place] [address] [id number] Louis Barber Self - patient is the insured 1 [place] Medicaid Standard [address] [place] [address] [id number] Louis Barber Self - patient is the insured 1 Medical (General) History Medical History History ICD Code Hep C/biopsy done a long time ago/was on interferon asthma SA recovery 02/12 HTN suprapubic catheter for urinary retentio n Asthma Hypertension MENTAL/BEHAVIOR PROB NOS Tobacco use disorder BMI 25.0-25.9,ADULT Overweight BMI 25-29.9 Hepatitis C without hepatic coma, not ot herwise specified OPIOID ABUSE-UNSPEC Surgical History Surgery Date(Month/Year) I&D lt anticub Hospitalization History Reason Date(Month/Year) cystoscopy with direct visual internal u rethrotomy 01/31/09 [facility] admission 2004 I and D left hand 01/2016 [facility] ER Ear Complaint Rt canal abrasions 12/22/17
--- NOTE | 2024-09-21 17:00 | PC.NURSE ---
vanco 1000mg hung at 1620. canceled ordered. pharmacy aware
[2024-09-21 17:07] VITALS: BP 133/73; PULSE 81; RESP 16; TEMP 36.7; O2SAT 96
[2024-09-21 17:10] LABS: Appearance Urine Clear; Color Urine Yellow; Glucose Urine UA 100 mg/dL (Negative); Leukocyte Esterase Urine Small (1+) (Negative); Nitrite Urine Negative (Negative); Specific Gravity - Urine 1.015 (1.005-1.025); UMIC TRIGGER UA YES; Urine Blood Trace (Negative); Urine Ketones Negative (Negative); Urine Protein 30 (1+) mg/dL (Neg-Trace)
[2024-09-21 17:15] LABS: Bacteria Urine None Seen (None Seen); Hyaline Casts Urine 0-2 /LPF (0-2); Squamous Epithelial Cell Urine 0-2 /HPF (0-2)
--- NOTE | 2024-09-21 17:17 | PHA.PROG ---
Addendum entered by Bill Philip RPh 09/21/24 17:58: LOADING DOSE OF 1000 MG THEN 500 MG WERE GIVEN Original Note: Admission Date/Time: September 21, 2024 15:52 Indication: SKIN Weight in k.967 kg Adjusted body weight in Kg: Troy body weight in Kg: Obesity Dosing Indication % IBW: Serum Creatinine - Last 168 Hours 09/21/24 14:18 Creatinine 2.53 H Estimated CrCl and GFR - Last 168 Hours 09/21/24 14:18 Estim Creat Clear Calc 24.8 Estimated GFR 26 Vancomycin Loading Dose: 1000 MG Current Vancomycin Dosing Regimen: 500 MG Q24H Vancomycin Monitoring using AUC goal of 400 - 600 range with trough as surrogate marker: SEV=898 TROUGH=11.8 Date and Time for next Vancomycin Level to be drawn: 09/23/24 @1400 Pharmacist Comments on Vancomycin Plan: being cautious on dosing due to pt being in GUS. Vancomycin dosing will take advantage of [employer] as a clinical decision support tool that uses Bayesian modeling to calculate individual patient's pharmacokinetic parameters and forecast the patient's drug concentration time course with the target goal AUC 24 range of 400 - 600 mg/L/hr.
[2024-09-21 17:27] LABS: Amphetamine Screen Urine Not Detected (Not Detect); Barbiturates, Urine Not Detected (Not Detect); Benzodiazepines Screen Urine Not Detected (Not Detect); Buprenorphine Scr Not Detected (Not Detect); Cannabinoid Screen Urine Not Detected (Not Detect); Cocaine Screen Urine POSITIVE (Not Detect); Fentanyl, urine POSITIVE (Not Detect); Methadone Screen, Urine Not Detected (Not Detect); Opiate Screen Urine POSITIVE (Not Detect); Oxycodone Screen Urine Not Detected (Not Detect); Phencyclidine Screen Urine Not Detected (Not Detect)
[2024-09-21] MEDS: vancomycin HCL 500 MG in 0.9 % Sodium Chloride 100 ML 110 MG IV (17:40)
[2024-09-21] MEDS: Enoxaparin Sodium 30 MG/0.3 ML SYRINGE SUBCUT (17:40)
--- NOTE | 2024-09-21 17:52 | PHA.MEDREC ---
Addendum entered by Trey Foss [facility] 09/21/24 18:01: [facility] reviewed Original Note: Pharmacy Consult ? Medication Reconciliation Pharmacy has completed the medication reconciliation. Patient states he takes Lisinopril 20 mg, however last fill date was 05/28/24 for 30 days, Amlodipine 10 mg , however last fill date was 05/28/24 for 30 days, Losartan 50 mg, however last fill date was 04/29/24 for 30 days and Trazadone 50 mg , however last fill date was 05/06/24 for 30 days. when patient was discharged in 05/06/24 he was discharged with HCTZ 25 mg for 30 days and Labetalol 100 mg for 30 days.
[2024-09-21] MEDS: 0.9 % Sodium Chloride 1,000 ML 80 ML IVCONT (18:11)
--- NOTE | 2024-09-21 19:06 | PC.NURSE ---
Addendum entered by Jama Puckett 09/21/24 19:26: safety search done by security; 3 knives secured with security can be obtained at discharge. disposed of 1 needle, 2 crack pipes. Original Note: assumed care of pt at this time, infusions empty unsure of when finished, infused in jun. pt resting comfortably watching tv. pt asked lights to be turned off and door shut. pt has all belongings at bedside no documentation of belongings/safety search being done. security notified. call blount within reach.
[2024-09-21 20:25] VITALS: BP 129/77; PULSE 94; RESP 16; TEMP 36.9; O2SAT 96
[2024-09-22 06:09] VITALS: BP 142/83; PULSE 81; RESP 16; TEMP 36.9; O2SAT 98
[2024-09-22] MEDS: 0.9 % Sodium Chloride 1,000 ML 80 ML IVCONT ×2 (06:20→17:11)
[2024-09-22 08:14] LABS: EOS Counted 0 CELLS; EOS QC POS YES; EOS Stain Quality OK YES; WBC, Counted 100 CELLS
[2024-09-22 09:50] VITALS: BP 142/83
[2024-09-22] MEDS: amLODIPine Besylate 10 MG TABLET PO (09:50)
[2024-09-22] MEDS: 0.9 % Sodium Chloride Flush 3 ML SYRINGE IVFLUSH ×2 (09:50→17:12)
--- NOTE | 2024-09-22 10:07 | HO.ADDICTCON ---
History of Present Illness Date of Service: 09/22/2024 Chief Complaint: Abscess, GUS Reason for Consult: ESTUARDO Sources of Information: patient interviewed and chart reviewed HPI Narrative: Patient is a 59 year old male medically admitted with right arm abscess secondary to IVDU. Patient seen in overflow room 4 as he awaits room assignment. He is awake, alert, pleasant and engaged in interview. Watching TV when approached by t/w. He reports long standing history of opioid use, with periods of reduced use or abstinence in between. He reports currently using several bundles per day --approx 5 and recently started mixing with cocaine, which is what he feels led to his abscess. History of treatment with [facility]OUD--states he was a patient at [facility] up until a few months ago. Reports his dose there was 80mg. Reports several admissions to [facility] level of care Reports 3 lifetime overdoses requiring narcan He appears overall comfortable when seen by t/w, no diaphoresis or restlessness noted. He also denies any withdrawal sx, with the exception of feeling hot . He states that he usually does not experience withdrawal sx until 24-36 hours after last use. He declines methadone dose at this time, but states he does want to start before discharge and be connected to clinic again. Medical Evaluation Reviewed: Yes Review of Systems Constitutional: Reports as per HPI and Reports no additional constitutional complaints Diagnostics Vital Signs (24Hr): Vital Signs - 24 hr 09/21/24 13:58 09/21/24 17:07 09/21/24 20:25 Temperature 98.4 F 98.1 F 98.4 F Pulse Rate 102 H 81 94 Respiratory Rate 18 16 16 Blood Pressure 126/72 133/73 129/77 Pulse Oximetry 99 96 96 Oxygen Delivery Method Room Air Room Air Room Air 09/22/24 06:09 09/22/24 09:50 Temperature 98.5 F Pulse Rate 81 Respiratory Rate 16 Blood Pressure 142/83 H 142/83 H Pulse Oximetry 98 Oxygen Delivery Method Room Air BMI result Body Mass Index 23.8 Labs 09/22/24 09:42 09/22/24 09:42 Labs: Laboratory Results - last 48 hr 09/21/24 09/21/24 09/21/24 14:18 15:23 17:01 WBC 9.4 RBC 4.35 L Hgb 12.8 L Hct 38.8 L MCV 89.2 MCH 29.4 MCHC 33.0 RDW 11.9 Plt Count 362 D MPV 9.0 L Immature Gran % (Auto) 0.4 Neut % (Auto) 80.0 H Lymph % (Auto) 11.6 L [place] % (Auto) 5.1 Eos % (Auto) 2.6 Baso % (Auto) 0.3 Lymph # (Auto) 1.1 L [place] # (Auto) 0.5 Eos # (Auto) 0.2 Baso # (Auto) 0.0 Abs Immat Gran (auto) 0.04 H Absolute Neuts (auto) 7.5 Absolute Nucleated RBC 0.000 Nucleated RBC % (auto) 0.0 ESR 38 H Sodium 141 Potassium 5.3 H Chloride 107 Carbon Dioxide 26 Anion Gap 13 BUN 32 H Creatinine 2.53 H Estim Creat Clear Calc 24.8 Estimated GFR 26 Random Glucose 92 Lactic Acid 0.9 Calcium 9.0 Total Bilirubin 0.6 AST 21 ALT 16 Alkaline Phosphatase 128 H C-Reactive Protein 3.77 H Total Protein 7.6 Albumin 4.2 Urine Color Yellow Urine Appearance Clear Urine pH 6.0 Ur Specific [place] 1.015 Urine Protein 30 (1+) H Urine Glucose (UA) 100 H Urine Ketones Negative Urine Blood Trace H Urine Nitrite Negative Ur Leukocyte Esterase Small (1+) H Urine RBC 11-20 H Urine WBC 11-20 H Ur Squamous Epith Cells 0-2 Urine Bacteria None Seen Hyaline Casts 0-2 Urine Eosinophils % 0.0 Ur Random Sodium 74.0 Urine Opiates Screen POSITIVE H Ur Buprenorphine Scrn Not Detected Ur Oxycodone Screen Not Detected Urine Methadone Screen Not Detected Urine Fentanyl Screen POSITIVE H Ur Barbiturates Screen Not Detected Ur Phencyclidine Scrn Not Detected Ur Amphetamines Screen Not Detected U Benzodiazepines Scrn Not Detected Urine Cocaine Screen POSITIVE H U Marijuana (THC) Screen Not Detected Mental Status Exam Mental Status Exam Patient Appearance: Appropriate Level of Consciousness: Awake, Appropriate and Alert Patient Behavior: Appropriate and Cooperative Affect Description: Calm Speech Pattern: Clear Memory Description: Intact Hallucinations: None Thought Process: Intact Thought Content: positive for Intact Judgement: Fair Medications Medications Current Medications Acetaminophen (Acetaminophen 325 Mg Tablet) 650 mg PO Q6H PRN PRN Reason: Pain, Mild 1-3,fever,headache Amlodipine Besylate (Amlodipine Besylate 10 Mg Tablet) 10 mg PO DAILY [facility]; Protocol Last Admin: 09/22/24 09:50 Dose: 10 mg Calcium Carbonate (Calcium Carbonate 750 Mg Tab.Chew) 750 mg PO Q4H PRN PRN Reason: Heartburn Enoxaparin Sodium (Enoxaparin Sodium 30 Mg/0.3 Ml Syringe) 30 mg SUBCUT Q24H [facility] Last Admin: 09/21/24 17:40 Dose: 30 mg Sodium Chloride (Ns) 1,000 mls @ 80 mls/hr IVCONT .[id number] [facility] Last Admin: 09/22/24 06:20 Dose: 80 mls/hr Vancomycin HCl 500 mg/ Sodium (Chloride) 110 mls @ 110 mls/hr IV Q24H [facility] Last Infusion: 09/21/24 19:05 Dose: Infused Magnesium Hydroxide (Milk Of Magnesia 30 Ml Oral.Susp) 30 ml PO DAILY PRN PRN Reason: Constipation Melatonin (Melatonin 3 Mg Tablet) 6 mg PO BEDTIME PRN PRN Reason: Insomnia Morphine Sulfate (Morphine Sulfate 4 Mg/Ml Cartridge) 2 mg IVPUSH Q4H PRN; Protocol PRN Reason: Pain, Severe (Pain Scale 7-10) Ondansetron HCl (Ondansetron Hcl 4 Mg/2 Ml Vial) 4 mg IVPUSH Q8H PRN PRN Reason: Nausea and Vomiting Pharmacy Consult (Consult Rx Vancomycin Dosing) 1 each MISCELLANE DAILY PRN PRN Reason: Consult order Sodium Chloride (0.9 % Sodium Chloride Flush 3 Ml Syringe) 3 ml IVFLUSH QSHIFT [facility] Last Admin: 09/22/24 09:50 Dose: 3 ml Allergies Allergies Allergy/AdvReac Type Severity Reaction Status Date / Time No Known Allergies (No Known Allergy Verified 09/21/24 14:02 Allergies*) Assessment & Plan Assessment & Plan (1) Opioid use disorder: Status: Acute Code(s): F11.90 - Opioid use, unspecified, uncomplicated Assessment and Plan: methadone 20mg X1 PRN dose--advised patient to request dose when he feels ready HIV and Hepatitis screen ordered for AM --patient reports that is has been years since last screen nitro worker to submit referral to [facility] in AM Total time managing care of this patient today __35__ minutes. PMFSH Past Medical History Medical History Substance abuse HTN (hypertension) Social History Social History Household Members: None Housing: Apartment Do you presently have visiting nurse or other home services: No Alcohol intake: never Patient Tobacco Use Status: Current everyday Tobacco user Tobacco use type: Cigarette Cigarettes Per Day: 5 Substance Use Type: Crack/Cocaine
[2024-09-22 10:18] LABS: MANUAL DIFF FLAG NO
[2024-09-22 10:25] LABS: Basophils Percent Auto 0.6 % (0-2); Eosinophils Absolute Auto 0.3 X10*3/uL (0.0-0.4); Eosinophils Percent Auto 4.7 % (0-4); Hematocrit 39.3 % (42.0-52.0); Hemoglobin 12.6 g/dl (14.0-18.0); Imm Gran Abs Auto 0.02 X10*3/uL (0.00-0.03); Imm Gran Pct Auto 0.3 % (0.0-0.4); Lymphocytes Absolute Auto 0.7 X10*3/uL (1.2-4.9); Lymphocytes Percent Auto 9.8 % (20-40); Mean Corpuscular HGB Conc 32.1 g/dl (31.0-36.0); Mean Corpuscular Hemoglobin 28.9 pg (27.0-33.0); Mean Corpuscular Volume 90.1 fL (80.0-98.0); Mean Platelet Volume 9.3 fL (9.4-12.4); Monocytes Absolute Auto 0.6 X10*3/uL (0.1-1.2); Monocytes Percent Auto 8.3 % (2-11); Neutrophils Absolute Auto 5.4 x10*3/uL (2.0-8.3); Neutrophils Percent Auto 76.3 % (45-73); Platelet Count 350 X10*3/uL (160-400); Red Blood Count 4.36 X10*6/uL (4.60-5.80)
[2024-09-22 10:32] VITALS: BMI 25.9
--- NOTE | 2024-09-22 10:33 | PC.NURSE ---
pt met with andres Cassidy, denies withdrawal symptoms . nad, skin wpd, r ac abscess /infection ate breakfast and offers no complaints morning med given
[2024-09-22 10:39] LABS: Anion Gap 11 (12-20); Blood Urea Nitrogen 21 mg/dL (9-16); Carbon Dioxide 25 mmol/L (22-29); Chloride 109 mmol/L (96-108); Creatinine Clr Calc Pharmacy 36.3; Estimated Glomerular Filt Rate 41; Glucose Random 97 mg/dL (60-115); Potassium 5.2 mmol/L (3.3-5.1); Sodium 140 mmol/L (135-145)
[2024-09-22 11:33] VITALS: BP 131/84; PULSE 89; RESP 18; TEMP 36.9; O2SAT 99
--- NOTE | 2024-09-22 11:41 | HO.PM.IMPN ---
Subjective Subjective Date of Service: 09/22/24 Interval History: seen and evaluated feels better Cr trending down Abscess getting larger, painful in forearm K elevated no other events Review of Systems Review of Systems: Yes all other systems are reviewed and are negative Physical Exam Vital Signs: Vital Signs: Last Vital Signs Temp 98.4 F 09/22/24 11:33 Pulse 89 09/22/24 11:33 Resp 18 09/22/24 11:33 BP 131/84 09/22/24 11:33 Pulse Ox 99 09/22/24 11:33 O2 Del Method Room Air 09/22/24 11:33 BMI result Body Mass Index 23.8 Const: Other: Constitutional : Awake, interactive, not in distress Neck : Normal inspection, Supple Cardiovascular : RRR, no JVP, no lower extremity edema Respiratory : good bilateral air entry, no crackles, wheezes or rhonchi Gastrointestinal: soft, lax, Normal bowel sounds, Non tender Skin : Warm, Dry, forearm abscess with surrounding erythema, pus formation in the medial abscess with no drainage Neurological : Alert & oriented x3, No focal deficit Objective Data Active Medications Acetaminophen (Acetaminophen 325 Mg Tablet) 650 mg PO Q6H PRN PRN Reason: Pain, Mild 1-3,fever,headache Amlodipine Besylate (Amlodipine Besylate 10 Mg Tablet) 10 mg PO DAILY [facility]; Protocol Last Admin: 09/22/24 09:50 Dose: 10 mg Documented By: TONY Calcium Carbonate (Calcium Carbonate 750 Mg Tab.Chew) 750 mg PO Q4H PRN PRN Reason: Heartburn Enoxaparin Sodium (Enoxaparin Sodium 30 Mg/0.3 Ml Syringe) 30 mg SUBCUT Q24H [facility] Last Admin: 09/21/24 17:40 Dose: 30 mg Documented By: NEEL Sodium Chloride (Ns) 1,000 mls @ 80 mls/hr IVCONT .[id number] [facility] Last Admin: 09/22/24 06:20 Dose: 80 mls/hr Documented By: MONTY Vancomycin HCl 500 mg/ Sodium (Chloride) 110 mls @ 110 mls/hr IV Q24H [facility] Last Infusion: 09/21/24 19:05 Dose: Infused Documented By: MONTY Magnesium Hydroxide (Milk Of Magnesia 30 Ml Oral.Susp) 30 ml PO DAILY PRN PRN Reason: Constipation Melatonin (Melatonin 3 Mg Tablet) 6 mg PO BEDTIME PRN PRN Reason: Insomnia Methadone HCl (Methadone Hcl 20 Mg/2 Ml Oral.Conc) 20 mg PO ONCE PRN PRN Reason: Opiate Withdrawal Morphine Sulfate (Morphine Sulfate 4 Mg/Ml Cartridge) 2 mg IVPUSH Q4H PRN; Protocol PRN Reason: Pain, Severe (Pain Scale 7-10) Ondansetron HCl (Ondansetron Hcl 4 Mg/2 Ml Vial) 4 mg IVPUSH Q8H PRN PRN Reason: Nausea and Vomiting Pharmacy Consult (Consult Rx Vancomycin Dosing) 1 each MISCELLANE DAILY PRN PRN Reason: Consult order Sodium Chloride (0.9 % Sodium Chloride Flush 3 Ml Syringe) [facility] Admin: 09/22/24 09:50 Dose: 3 ml Documented By: TONY Labs 09/22/24 09:42 09/22/24 09:42 Labs: Laboratory Results - last 24 hr 09/21/24 09/21/24 09/21/24 14:18 15:23 17:01 MCV 89.2 MCH 29.4 MCHC 33.0 RDW 11.9 Plt Count 362 D MPV 9.0 L Immature Gran % (Auto) 0.4 Neut % (Auto) 80.0 H Lymph % (Auto) 11.6 L [place] % (Auto) 5.1 Eos % (Auto) 2.6 Baso % (Auto) 0.3 Lymph # (Auto) 1.1 L [place] # (Auto) 0.5 Eos # (Auto) 0.2 Baso # (Auto) 0.0 Abs Immat Gran (auto) 0.04 H Absolute Neuts (auto) 7.5 Absolute Nucleated RBC 0.000 Nucleated RBC % (auto) 0.0 ESR 38 H Anion Gap 13 Estim Creat Clear Calc 24.8 Estimated GFR 26 Random Glucose 92 Lactic Acid 0.9 Calcium 9.0 Total Bilirubin 0.6 AST 21 ALT 16 Alkaline Phosphatase 128 H C-Reactive Protein 3.77 H Total Protein 7.6 Albumin 4.2 Urine Color Yellow Urine Appearance Clear Urine pH 6.0 Ur Specific [place] 1.015 Urine Protein 30 (1+) H Urine Glucose (UA) 100 H Urine Ketones Negative Urine Blood Trace H Urine Nitrite Negative Ur Leukocyte Esterase Small (1+) H Urine RBC 11-20 H Urine WBC 11-20 H Ur Squamous Epith Cells 0-2 Urine Bacteria None Seen Hyaline Casts 0-2 Urine Eosinophils % 0.0 Ur Random Sodium 74.0 Urine Opiates Screen POSITIVE H Ur Buprenorphine Scrn Not Detected Ur Oxycodone Screen Not Detected Urine Methadone Screen Not Detected Urine Fentanyl Screen POSITIVE H Ur Barbiturates Screen Not Detected Ur Phencyclidine Scrn Not Detected Ur Amphetamines Screen Not Detected U Benzodiazepines Scrn Not Detected Urine Cocaine Screen POSITIVE H U Marijuana (THC) Screen Not Detected 09/22/24 09:42 MCV 90.1 MCH 28.9 MCHC 32.1 RDW 12.0 Plt Count 350 MPV 9.3 L Immature Gran % (Auto) 0.3 Neut % (Auto) 76.3 H Lymph % (Auto) 9.8 L [place] % (Auto) 8.3 Eos % (Auto) 4.7 H Baso % (Auto) 0.6 Lymph # (Auto) 0.7 L [place] # (Auto) 0.6 Eos # (Auto) 0.3 Baso # (Auto) 0.0 Abs Immat Gran (auto) 0.02 Absolute Neuts (auto) 5.4 Absolute Nucleated RBC 0.000 Nucleated RBC % (auto) 0.0 ESR Anion Gap 11 L Estim Creat Clear Calc 36.3 Estimated GFR 41 Random Glucose 97 Lactic Acid Calcium 9.0 Total Bilirubin AST ALT Alkaline Phosphatase C-Reactive Protein Total Protein Albumin Urine Color Urine Appearance Urine pH Ur Specific [place] Urine Protein Urine Glucose (UA) Urine Ketones Urine Blood Urine Nitrite Ur Leukocyte Esterase Urine RBC Urine WBC Ur Squamous Epith Cells Urine Bacteria Hyaline Casts Urine Eosinophils % Ur Random Sodium Urine Opiates Screen Ur Buprenorphine Scrn Ur Oxycodone Screen Urine Methadone Screen Urine Fentanyl Screen Ur Barbiturates Screen Ur Phencyclidine Scrn Ur Amphetamines Screen U Benzodiazepines Scrn Urine Cocaine Screen U Marijuana (THC) Screen Assessment and Plan (1) IVDU (intravenous drug user): Status: Acute (2) Acute kidney injury superimposed on CKD: Status: Acute (3) Acute hyperkalemia: Status: Acute (4) Cellulitis and abscess of upper extremity: Status: Acute Plan A 59 yeats old male with PMH of IVDU on Methadone, HTN who presents to the hospital with right forearm abscess that developed over the last week. RUE cellulitis and abscess broad spectrum antibiotics follow cultures elevate arm cold compressors consult surgery Vancomycin trough GUS on CKD3 with acute hyperkalemia Cr improving close to his 1.4 in Apr 2024 K of 5.2 give KAyexalate IVF Hold nephrotoxic meds I\O follow BMP Opioids and Cocain abuse monitor for withdrwal addiction team eval HTN did not fill medications in months, monitor for now DVT PPx Lovenox The patient will need 2 overnight hospital stay for IV Abx and IV fluids for GUS pending final cultures. Quality Stroke Does the patient have a stroke diagnosis?: No VTE Prior VTE?: No VTE Risk Level:: Medical - moderate - high VTE Device Contraindication: Treatment Not Indicated VTE Drug Contraindication: N/A - Med Ordered
[2024-09-22] MEDS: Sodium Polystyrene Sulfon/Sorb 15 GM/60 ML ORAL.SUSP 30 GM PO (12:22)
--- NOTE | 2024-09-22 12:36 | PM.CNGS ---
History of Present Illness Consult details Consult date: 09/22/24 <Hari Abreu PA-C - Last Filed: 09/22/24 12:48> Narrative: 59 years old male with PMH of IVDU on Methadone, HTN who presents to the hospital with right forearm abscess that developed over the last week. Patient states he has had this for about a month or 2 but it has worsened over the past week now causing him significant pain. He denies any discharge from the abscess. Patient states that this was a previous injection site, he has not been injecting in this recently. States his last use was yesterday prior to admission <Hari Abreu PA-C - Last Filed: 09/22/24 12:48> PMF Past Medical History Medical History: Medical History Substance abuse HTN (hypertension) <Hari Abreu PA-C - Last Filed: 09/22/24 12:48> Social History Social History: Social History Household Members: None Housing: Apartment Do you presently have visiting nurse or other home services: No Alcohol intake: never Patient Tobacco Use Status: Current everyday Tobacco user Tobacco use type: Cigarette Cigarettes Per Day: 5 Substance Use Type: Crack/Cocaine service: No <Hari Abreu PA-C - Last Filed: 09/22/24 12:48> Meds Allergies/Adverse reactions: Allergies Allergy/AdvReac Type Severity Reaction Status Date / Time No Known Allergies (No Known Allergy Verified 09/21/24 14:02 Allergies*) <Hari Abreu PA-C - Last Filed: 09/22/24 12:48> Active Medications: Current Medications Acetaminophen (Acetaminophen 325 Mg Tablet) 650 mg PO Q6H PRN PRN Reason: Pain, Mild 1-3,fever,headache Amlodipine Besylate (Amlodipine Besylate 10 Mg Tablet) 10 mg PO DAILY [facility]; Protocol Last Admin: 09/22/24 09:50 Dose: 10 mg Calcium Carbonate (Calcium Carbonate 750 Mg Tab.Chew) 750 mg PO Q4H PRN PRN Reason: Heartburn Enoxaparin Sodium (Enoxaparin Sodium 30 Mg/0.3 Ml Syringe) 30 mg SUBCUT Q24H [facility] Last Admin: 09/21/24 17:40 Dose: 30 mg Sodium Chloride (Ns) 1,000 mls @ 80 mls/hr IVCONT .[id number] [facility] Last Admin: 09/22/24 06:20 Dose: 80 mls/hr Vancomycin HCl 500 mg/ Sodium (Chloride) 110 mls @ 110 mls/hr IV Q24H [facility] Last Infusion: 09/21/24 19:05 Dose: Infused Magnesium Hydroxide (Milk Of Magnesia 30 Ml Oral.Susp) 30 ml PO DAILY PRN PRN Reason: Constipation Melatonin (Melatonin 3 Mg Tablet) 6 mg PO BEDTIME PRN PRN Reason: Insomnia Methadone HCl (Methadone Hcl 20 Mg/2 Ml Oral.Conc) 20 mg PO ONCE PRN PRN Reason: Opiate Withdrawal Morphine Sulfate (Morphine Sulfate 4 Mg/Ml Cartridge) 2 mg IVPUSH Q4H PRN; Protocol PRN Reason: Pain, Severe (Pain Scale 7-10) Ondansetron HCl (Ondansetron Hcl 4 Mg/2 Ml Vial) 4 mg IVPUSH Q8H PRN PRN Reason: Nausea and Vomiting Pharmacy Consult (Consult Rx Vancomycin Dosing) 1 each MISCELLANE DAILY PRN PRN Reason: Consult order Sodium Chloride (0.9 % Sodium Chloride Flush 3 Ml Syringe) 3 ml IVFLUSH QSHIFT [facility] Last Admin: 09/22/24 09:50 Dose: 3 ml <Hari Abreu PA-C - Last Filed: 09/22/24 12:48> Home medications: Home Medications ?Medication ?Instructions ?Recorded ?Confirmed ?Last Taken ?Type amlodipine 10 mg tablet 10 mg PO DAILY 09/21/24 09/21/24 Unknown History lisinopril 20 mg tablet 20 mg PO DAILY 09/21/24 09/21/24 Unknown History losartan 50 mg tablet 50 mg PO DAILY 09/21/24 09/21/24 Unknown History trazodone 150 mg tablet 150 mg PO BEDTIME 09/21/24 09/21/24 Unknown History <Hari Abreu PA-C - Last Filed: 09/22/24 12:48> Physical Exam Vital Signs: Vital Signs: Last Vital Signs Temp 98.4 F 09/22/24 11:33 Pulse 89 09/22/24 11:33 Resp 18 09/22/24 11:33 BP 131/84 09/22/24 11:33 Pulse Ox 99 09/22/24 11:33 O2 Del Method Room Air 09/22/24 11:33 BMI result Body Mass Index 23.8 <Hari Abreu PA-C - Last Filed: 09/22/24 12:48> Skin: Other: Small 2 x 2 cm fluid collection on the proximal right forearm. Palpable fluid collection. Surrounding erythema. Tender to palpation. Lots of scar tissue surrounding the area <SUZE Oro Last Filed: 09/22/24 12:48> Results Labs Result diagrams: 09/22/24 09:42 09/22/24 09:42 <SUZE Oro Last Filed: 09/22/24 12:48> Labs: Abnormal lab results 09/21/24 09/21/24 09/22/24 Range/Units 14:18 17:01 09:42 RBC 4.35 L 4.36 L (4.60-5.80) X10*6/uL Hgb 12.8 L 12.6 L (14.0-18.0) g/dl Hct 38.8 L 39.3 L (42.0-52.0) % MPV 9.0 L 9.3 L (9.4-12.4) fL Neut % (Auto) 80.0 H 76.3 H (45-73) % Lymph % (Auto) 11.6 L 9.8 L (20-40) % Eos % (Auto) 4.7 H (0-4) % Lymph # (Auto) 1.1 L 0.7 L (1.2-4.9) X10*3/uL Abs Immat Gran (auto) 0.04 H (0.00-0.03) X10*3/uL ESR 38 H (0-15) MM/HR Potassium 5.3 H 5.2 H (3.3-5.1) mmol/L Chloride 109 H (96-108) mmol/L Anion Gap 11 L (12-20) BUN 32 H 21 H (9-16) mg/dL Creatinine 2.53 H 1.73 H (0.5-1.4) mg/dL Alkaline Phosphatase 128 H (39-117) U/L C-Reactive Protein 3.77 H (< or = 0.50) mg/dL Urine Protein 30 (1+) H (Neg-Trace) mg/dL Urine Glucose (UA) 100 H (Negative) mg/dL Urine Blood Trace H (Negative) Ur Leukocyte Esterase Small (1+) H (Negative) Urine RBC 11-20 H (0-2) /HPF Urine WBC 11-20 H (0-5) /HPF Urine Opiates Screen POSITIVE H (Not Detect) Urine Fentanyl Screen POSITIVE H (Not Detect) Urine Cocaine Screen POSITIVE H (Not Detect) Short CBC 09/21/24 09/22/24 Range/Units 14:18 09:42 WBC 9.4 7.0 (4.8-10.8) X10*3/uL Hgb 12.8 L 12.6 L (14.0-18.0) g/dl Hct 38.8 L 39.3 L (42.0-52.0) % Plt Count 362 D 350 (160-400) X10*3/uL BMP 09/21/24 09/22/24 14:18 09:42 Sodium 141 140 Potassium 5.3 H 5.2 H Chloride 107 109 H Carbon Dioxide 26 25 BUN 32 H 21 H Creatinine 2.53 H 1.73 H Calcium 9.0 9.0 Liver Function 09/21/24 Range/Units 14:18 Total Bilirubin 0.6 (0.0-1.0) mg/dL AST 21 (5-37) U/L ALT 16 (0-40) U/L Alkaline Phosphatase 128 H (39-117) U/L Albumin 4.2 (3.5-5.0) g/dL Urine 09/21/24 Range/Units 17:01 Urine Color Yellow Urine Appearance Clear Urine pH 6.0 (5.0-9.0) Ur Specific [place] 1.015 (1.005-1.025) Urine Protein 30 (1+) H (Neg-Trace) mg/dL Urine Glucose (UA) 100 H (Negative) mg/dL All other labs normal. <Hari Abreu PA-C - Last Filed: 09/22/24 12:48> Assessment and Plan (1) Abscess: Status: Acute <Hari Abreu PA-C - Last Filed: 09/22/24 12:48> 59 years old male with PMH of IVDU on Methadone, HTN seen in consult for right forearm abscess that developed over the last week. Patient has a 2 x 2 cm fluid collection in the proximal right forearm. It is not appear to be draining at this point. The area is tender to the touch. We discussed the plan to I&D the abscess at bedside, patient agreeable to plan. The fluid collection was prepped with iodine, and the skin was opened using an 11 blade. The incisoin began draining what appears to be a hematoma, draining sanguineous fluid. There was no evidence of purulent drainage from the site therefore no culture was obtained. The wound was dressed with fluff gauze and wrapped with kerlix. The patient tolerated the procedure well. Recommend changing the dressing as needed, at least daily. Will continue to follow peripherally. <Hari Abreu PA-C - Last Filed: 09/22/24 12:48> 59 years old male with PMH of IVDU on Methadone, HTN seen in consult for right forearm abscess that developed over the last week. Patient has a 2 x 2 cm fluid collection in the proximal right forearm. It is not appear to be draining at this point. The area is tender to the touch. We discussed the plan to I&D the abscess at bedside, patient agreeable to plan. The fluid collection was prepped with iodine, and the skin was opened using an 11 blade. The incisoin began draining what appears to be a hematoma, draining sanguineous fluid. There was no evidence of purulent drainage from the site therefore no culture was obtained. The wound was dressed with fluff gauze and wrapped with kerlix. The patient tolerated the procedure well. Recommend changing the dressing as needed, at least daily. Will continue to follow peripherally. Patient seen and examined, agree with the above assessment and plan. Incision and drainage performed as noted above with production of only some bloody fluid but no abscess. Dry sterile dressings applied. <Gaetano Malagon MD - Last Filed: 09/22/24 15:32> Procedures Date of Service Date of Service: 09/22/24 <Hari Abreu PA-C - Last Filed: 09/22/24 12:48> 09/22/24 <Gaetano Malagon MD - Last Filed: 09/22/24 15:32> Abscess I/D Consent for Procedure: Elective - informed consent obtained (Verbal) <Hari Abreu PA-C - Last Filed: 09/22/24 12:48> Site: upper extremity (Forearm) <SUZE Oro Last Filed: 09/22/24 12:48> Side (if applicable): right <SUZE Oro Last Filed: 09/22/24 12:48> Sedation/analgesia: none <SUZE Oro Last Filed: 09/22/24 12:48> Technique: incised with #11 blade <SUZE Oro Last Filed: 09/22/24 12:48> Amount of fluid (mL): 3 <SUZE Oro Last Filed: 09/22/24 12:48> Irrigation: No <SUZE Oro Last Filed: 09/22/24 12:48> Packing used?: none <SUZE Oro Last Filed: 09/22/24 12:48> Additional comments: Hematoma <SUZE Oro Last Filed: 09/22/24 12:48>
--- NOTE | 2024-09-22 13:17 | MHC.CM.PN ---
IMM 09/22/24, Pt lives alone, PCP is Dr. Sneha Muir at [address] [place] [address] in [place]. Pt. does not have home health services, or DME. He will take the bus home at [place]. DCP: home, self care. He said his home Methadone Clinic [facility] in [place]. DCP: home, self care, CM to follow for DC needs.
[2024-09-22 14:00] VITALS: BP 128/82; PULSE 96; RESP 18; TEMP 37; O2SAT 99
[2024-09-22] MEDS: Enoxaparin Sodium 30 MG/0.3 ML SYRINGE SUBCUT (17:12)
[2024-09-22] MEDS: vancomycin HCL 500 MG in 0.9 % Sodium Chloride 100 ML 110 MG IV (17:12)
[2024-09-22 19:40] VITALS: BP 147/89; PULSE 90; RESP 18; TEMP 36.9; O2SAT 97
[2024-09-22] MEDS: Melatonin 3 MG TABLET 6 MG PO (20:47)
[2024-09-23 03:23] VITALS: BP 161/95; PULSE 75; RESP 16; TEMP 36.4; O2SAT 97
[2024-09-23] MEDS: 0.9 % Sodium Chloride 1,000 ML 80 ML IVCONT (05:41)
[2024-09-23 06:25] LABS: Creatinine Clr Calc Pharmacy 42.8; Estimated Glomerular Filt Rate 49
[2024-09-23 06:26] LABS: Anion Gap 13 (12-20); Blood Urea Nitrogen 16 mg/dL (9-16); Calcium 9.3 mg/dL (8.4-10.2); Carbon Dioxide 24 mmol/L (22-29); Chloride 107 mmol/L (96-108); Creatinine Clr Calc Pharmacy 42.8; Estimated Glomerular Filt Rate 49; Glucose Random 85 mg/dL (60-115); Potassium 4.2 mmol/L (3.3-5.1); Sodium 140 mmol/L (135-145)
[2024-09-23 07:28] LABS: Glucose, Whole Blood 98 mg/dL (60-115)
[2024-09-23 07:49] VITALS: BP 153/93; PULSE 81; RESP 16; TEMP 36.8; O2SAT 99
[2024-09-23] MEDS: amLODIPine Besylate 10 MG TABLET PO (08:13)
[2024-09-23] MEDS: Losartan Potassium 25 MG TABLET PO (08:13)
[2024-09-23 08:39] LABS: HIV AB/AG Nonreactive (Nonreactive); HIV Num 1 0.06 S/CO (0.00-0.99); ~Hepatitis C Antibody Reactive (Nonreactive)
--- NOTE | 2024-09-23 10:11 | HO.ADDICTPRO ---
Subjective Subjective Date of Service: 09/23/24 Reason For Visit: Abscess, GUS Interim History: Patient seen in follow up for ESTUARDO and methadone initiation. Chart reviewed, patient with no PRN methadone or PRN morphine overnight. Patient in bed, awake, alert, appearing slightly diaphoretic and uncomfortable. When asked how he was feeling, he replied, okay, not bad . Patient under reporting as with further inquiry acknowledged nausea and loose stools. He stated he did not think it was too bad and was okay. Offered methadone dose, patient accepted Plan for discharge later today. Patient would like to resume care with [facility] Review of Systems Acute medical concerns: Yes Review of Systems Constitutional: Reports as per HPI and Reports no additional constitutional complaints Mental Status Exam Mental Status Exam Patient Appearance: Appropriate Level of Consciousness: Awake, Appropriate and Alert Patient Behavior: Appropriate and Talkative Affect Description: Calm Speech Pattern: Clear Hallucinations: None Thought Process: Intact Thought Content: positive for Intact Judgement: Good Diagnostics Vital Signs (24Hr): Vital Signs - 24 hr 09/22/24 11:33 09/22/24 14:00 09/22/24 19:40 Temperature 98.4 F 98.6 F 98.4 F Pulse Rate 89 96 90 Respiratory Rate 18 18 18 Blood Pressure 131/84 128/82 147/89 H Pulse Oximetry 99 99 97 Oxygen Delivery Method Room Air Room Air Room Air 09/23/24 03:23 09/23/24 07:49 Temperature 97.6 F 98.2 F Pulse Rate 75 81 Respiratory Rate 16 16 Blood Pressure 161/95 H 153/93 H Pulse Oximetry 97 99 Oxygen Delivery Method Room Air Room Air BMI result Body Mass Index 25.9 Labs 09/22/24 09:42 09/23/24 05:51 Labs: Laboratory Results - last 48 hr 09/21/24 09/21/24 09/21/24 14:18 15:23 17:01 WBC 9.4 RBC 4.35 L Hgb 12.8 L Hct 38.8 L MCV 89.2 MCH 29.4 MCHC 33.0 RDW 11.9 Plt Count 362 D MPV 9.0 L Immature Gran % (Auto) 0.4 Neut % (Auto) 80.0 H Lymph % (Auto) 11.6 L [place] % (Auto) 5.1 Eos % (Auto) 2.6 Baso % (Auto) 0.3 Lymph # (Auto) 1.1 L [place] # (Auto) 0.5 Eos # (Auto) 0.2 Baso # (Auto) 0.0 Abs Immat Gran (auto) 0.04 H Absolute Neuts (auto) 7.5 Absolute Nucleated RBC 0.000 Nucleated RBC % (auto) 0.0 ESR 38 H Hold Purple Top Sodium 141 Potassium 5.3 H Chloride 107 Carbon Dioxide 26 Anion Gap 13 BUN 32 H Creatinine 2.53 H Estim Creat Clear Calc 24.8 Estimated GFR 26 POC Glucose Random Glucose 92 Lactic Acid 0.9 Calcium 9.0 Total Bilirubin 0.6 AST 21 ALT 16 Alkaline Phosphatase 128 H C-Reactive Protein 3.77 H Total Protein 7.6 Albumin 4.2 Urine Color Yellow Urine Appearance Clear Urine pH 6.0 Ur Specific [place] 1.015 Urine Protein 30 (1+) H Urine Glucose (UA) 100 H Urine Ketones Negative Urine Blood Trace H Urine Nitrite Negative Ur Leukocyte Esterase Small (1+) H Urine RBC 11-20 H Urine WBC 11-20 H Ur Squamous Epith Cells 0-2 Urine Bacteria None Seen Hyaline Casts 0-2 Urine Eosinophils % 0.0 Ur Random Sodium 74.0 Urine Opiates Screen POSITIVE H Ur Buprenorphine Scrn Not Detected Ur Oxycodone Screen Not Detected Urine Methadone Screen Not Detected Urine Fentanyl Screen POSITIVE H Ur Barbiturates Screen Not Detected Ur Phencyclidine Scrn Not Detected Ur Amphetamines Screen Not Detected U Benzodiazepines Scrn Not Detected Urine Cocaine Screen POSITIVE H U Marijuana (THC) Screen Not Detected Hepatitis C Ab (EIA) HIV 1&2 Ab/P24 Ag 4thGn 09/22/24 09/23/24 09/23/24 09:42 05:51 05:51 WBC 7.0 RBC 4.36 L Hgb 12.6 L Hct 39.3 L MCV 90.1 MCH 28.9 MCHC 32.1 RDW 12.0 Plt Count 350 MPV 9.3 L Immature Gran % (Auto) 0.3 Neut % (Auto) 76.3 H Lymph % (Auto) 9.8 L [place] % (Auto) 8.3 Eos % (Auto) 4.7 H Baso % (Auto) 0.6 Lymph # (Auto) 0.7 L [place] # (Auto) 0.6 Eos # (Auto) 0.3 Baso # (Auto) 0.0 Abs Immat Gran (auto) 0.02 Absolute Neuts (auto) 5.4 Absolute Nucleated RBC 0.000 Nucleated RBC % (auto) 0.0 ESR Hold Purple Top SEE NOTE Sodium 140 140 Potassium 5.2 H 4.2 Chloride 109 H 107 Carbon Dioxide 25 24 Anion Gap 11 L 13 BUN 21 H 16 Creatinine 1.73 H 1.47 H 1.47 H Estim Creat Clear Calc 36.3 42.8 Estimated GFR 41 POC Glucose Random Glucose 97 Lactic Acid Calcium 9.0 Total Bilirubin AST ALT Alkaline Phosphatase C-Reactive Protein Total Protein Albumin Urine Color Urine Appearance Urine pH Ur Specific [place] Urine Protein Urine Glucose (UA) Urine Ketones Urine Blood Urine Nitrite Ur Leukocyte Esterase Urine RBC Urine WBC Ur Squamous Epith Cells Urine Bacteria Hyaline Casts Urine Eosinophils % Ur Random Sodium Urine Opiates Screen Ur Buprenorphine Scrn Ur Oxycodone Screen Urine Methadone Screen Urine Fentanyl Screen Ur Barbiturates Screen Ur Phencyclidine Scrn Ur Amphetamines Screen U Benzodiazepines Scrn Urine Cocaine Screen U Marijuana (THC) Screen Hepatitis C Ab (EIA) HIV 1&2 Ab/P24 Ag 4thGn 09/23/24 09/23/24 09/23/24 05:51 05:51 07:11 WBC RBC Hgb Hct MCV MCH MCHC RDW Plt Count MPV Immature Gran % (Auto) Neut % (Auto) Lymph % (Auto) [place] % (Auto) Eos % (Auto) Baso % (Auto) Lymph # (Auto) [place] # (Auto) Eos # (Auto) Baso # (Auto) Abs Immat Gran (auto) Absolute Neuts (auto) Absolute Nucleated RBC Nucleated RBC % (auto) ESR Hold Purple Top Sodium Potassium Chloride Carbon Dioxide Anion Gap BUN Creatinine Estim Creat Clear Calc 42.8 Estimated GFR 49 49 POC Glucose 98 Random Glucose 85 Lactic Acid Calcium 9.3 Total Bilirubin AST ALT Alkaline Phosphatase C-Reactive Protein Total Protein Albumin Urine Color Urine Appearance Urine pH Ur Specific [place] Urine Protein Urine Glucose (UA) Urine Ketones Urine Blood Urine Nitrite Ur Leukocyte Esterase Urine RBC Urine WBC Ur Squamous Epith Cells Urine Bacteria Hyaline Casts Urine Eosinophils % Ur Random Sodium Urine Opiates Screen Ur Buprenorphine Scrn Ur Oxycodone Screen Urine Methadone Screen Urine Fentanyl Screen Ur Barbiturates Screen Ur Phencyclidine Scrn Ur Amphetamines Screen U Benzodiazepines Scrn Urine Cocaine Screen U Marijuana (THC) Screen Hepatitis C Ab (EIA) Reactive H HIV 1&2 Ab/P24 Ag 4thGn Nonreactive Medications Medications Current Medications Acetaminophen (Acetaminophen 325 Mg Tablet) 650 mg PO Q6H PRN PRN Reason: Pain, Mild 1-3,fever,headache Amlodipine Besylate (Amlodipine Besylate 10 Mg Tablet) 10 mg PO DAILY [facility]; Protocol Last Admin: 09/23/24 08:13 Dose: 10 mg Calcium Carbonate (Calcium Carbonate 750 Mg Tab.Chew) 750 mg PO Q4H PRN PRN Reason: Heartburn Enoxaparin Sodium (Enoxaparin Sodium 40 Mg/0.4 Ml Syringe) 40 mg SUBCUT Q24H [facility] Sodium Chloride (Ns) 1,000 mls @ 80 mls/hr IVCONT .[id number] [facility] Last Admin: 09/23/24 05:41 Dose: 80 mls/hr Vancomycin HCl 500 mg/ Sodium (Chloride) 110 mls @ 110 mls/hr IV Q24H [facility] Last Infusion: 09/22/24 18:33 Dose: Infused Losartan Potassium (Losartan Potassium 25 Mg Tablet) 25 mg PO DAILY [facility]; Protocol Last Admin: 09/23/24 08:13 Dose: 25 mg Magnesium Hydroxide (Milk Of Magnesia 30 Ml Oral.Susp) 30 ml PO DAILY PRN PRN Reason: Constipation Melatonin (Melatonin 3 Mg Tablet) 6 mg PO BEDTIME PRN PRN Reason: Insomnia Last Admin: 09/22/24 20:47 Dose: 6 mg Morphine Sulfate (Morphine Sulfate 4 Mg/Ml Cartridge) 2 mg IVPUSH Q4H PRN; Protocol PRN Reason: Pain, Severe (Pain Scale 7-10) Ondansetron HCl (Ondansetron Hcl 4 Mg/2 Ml Vial) 4 mg IVPUSH Q8H PRN PRN Reason: Nausea and Vomiting Pharmacy Consult (Consult Rx Vancomycin Dosing) 1 each MISCELLANE DAILY PRN PRN Reason: Consult order Sodium Chloride (0.9 % Sodium Chloride Flush 3 Ml Syringe) 3 ml IVFLUSH QSHIFT [facility] Last Admin: 09/23/24 08:13 Dose: Not Given Allergies Allergies Allergy/AdvReac Type Severity Reaction Status Date / Time No Known Allergies (No Known Allergy Verified 09/21/24 14:02 Allergies*) Assessment & Plan Assessment & Plan (1) Opioid use disorder: Status: Acute Code(s): F11.90 - Opioid use, unspecified, uncomplicated Assessment and Plan: methadone 40mg take home narcan and overdose prevention discussion referral to [facility] to be sent Total time managing care of this patient today _35___ minutes.
--- NOTE | 2024-09-23 10:30 | MHC.CM.PN ---
Addendum entered by aKci Muhammad RN 09/23/24 13:35: Patient prefers to take bus home. Bus pass provided. Original Note: Per MD rounds patient medically cleared for dc home self care. Patient has DSD to right arm, will be sent with supplies and reports he feels comfortable changing the dressing himself. Will transport home via lyft. RN aware.
--- NOTE | 2024-09-23 10:46 | P.CDIM_ITS ---
PROVIDER RESPONSE TEXT: To clarify, the appropriate diagnosis supported by the clinical indicators: skin QUERY TEXT: PHYSICIAN'S DOCUMENTATION REQUEST Date of Query: 09/23/2024 09:24 AM EDT Patient Name: Louis Barber Admit Date: 09/21/2024 Dear Hari Abreu PA-C, A review of the medical record indicates additional documentation may be needed. Please review below and update the documentation accordingly. Clinical Indicators: 09/22/24: Abscess I&D right forearm, incised with 11 blade The following diagnoses or signs and symptoms were noted in the patient record: 3 ml drained Based on the above, could you clarify the depth of the I&D: skin subcutaneous tissue and fat muscle Other (explain) Clinically unable to determine (explain) Thank you, Petra Li RN Use of terms such as suspected, likely, concern for, or probable (associated with a specific diagnosis that is being evaluated, monitored, or treated as if it exists) are acceptable and can be coded in the inpatient setting, when documented at the time of discharge. Please use your independent medical judgment in providing your response. THIS QUERY IS PART OF THE PERMANENT MEDICAL RECORD
[2024-09-23] MEDS: methADONE HCl 20 MG/2 ML ORAL.CONC 40 MG PO (10:58)
--- NOTE | 2024-09-23 11:07 | P.DS_ITS ---
DS: Providers Provider Date of Service: 09/23/24 Date of admission: 09/21/24 15:52 Date of discharge: 09/23/24 Primary care physician: Unknown Physician Consults: 09/21/24 17:44 Addiction Medicine Provider Routine Consulting Provider: Addiction Covering Reason for consultation: cocaine, opioid abuse off Methadone > year 09/22/24 09:39 Consult to General Surgery Routine Consulting Provider: [facility] General Surgeons Reason for consultation: forearm abscess. 09/22/24 11:45 Addiction Medicine Provider Routine Consulting Provider: Addiction Covering Reason for consultation: daily cocaine use DS: Diagnosis Discharge Diagnosis (1) Abscess: Status: Acute (2) Opioid use disorder: Status: Acute (3) IVDU (intravenous drug user): Status: Acute (4) GUS (acute kidney injury): Status: Acute (5) Acute hyperkalemia: Status: Acute (6) Acute kidney injury superimposed on CKD: Status: Acute (7) Cellulitis and abscess of upper extremity: Status: Acute DS: Summary Hospital Course Hospital Course: Admission note HPI A 59 yeats old male with PMH of IVDU on Methadone, HTN who presents to the hospital with right forearm abscess that developed over the last week. He states he started using recently. noted pain and erythema in his arm with worsening feeling of pain and chills. denies No chest pain, palpitations, SOB, n ausea, vomiting, diarrhea or urinary symptoms. He is on MEthadone daily. pain under fair control. In ED found to have worsening kidney function from baseline. Admitted for further work up and management. Hospital course # RUE cellulitis and abscess placed on broad spectrum antibiotics as cultures remainedn egative. Evaluated by surgery who did bedside drainage. No other events. # GUS on CKD3 with acute hyperkalemia with creatinine of 2.45 on presentation. Cr improving close to his 1.4 in Apr 2024 and potassium level improved back to normal. follow BMP with PCP. # Opioids and Cocain abuse, monitored for withdrwal. addiction team evaluated his and started Methadone 40 mg daily. Advised not to use. # HTN; elevated; started on AMlodipine and Losartan for now. to follow with PCP. Discharge plan Avoid using drugs Methadone 40 mg daily; follow as outpatinet Doxycycline 100 mg two times a day for 1 more week Take Amlodipine and Losartan for blood pressure control Follow with PCP for further management Follow with [facility] [place] surgery as outpatient for wound care Time Attestation Discharge Coordination Time (in mins): 38 Quality: Safe Use of Opioids Does Pt have an Active Cancer Diagnosis on the Problem List?: No Quality: Stroke Does the patient have a stroke diagnosis?: No Physical Exam Vital Signs: Vital Signs: Last Vital Signs Temp 98.2 F 09/23/24 07:49 Pulse 81 09/23/24 07:49 Resp 16 09/23/24 07:49 BP 153/93 H 09/23/24 07:49 Pulse Ox 99 09/23/24 07:49 O2 Del Method Room Air 09/23/24 07:49 BMI result Body Mass Index 25.9 Const: Other: Constitutional : Awake, interactive, not in distress Neck : Normal inspection, Supple Cardiovascular : RRR, no JVP, no lower extremity edema Respiratory : good bilateral air entry, no crackles, wheezes or rhonchi Gastrointestinal: soft, lax, Normal bowel sounds, Non tender Skin : Warm, Dry, forearm wound packed and covered with no surrounding erythema Neurological : Alert & oriented x3, No focal deficit DS: Data Data Completed and Pending Labs on day of discharge: Laboratory Results - last 24 hr 09/23/24 09/23/24 09/23/24 05:51 05:51 05:51 Hold Purple Top SEE NOTE Sodium 140 Potassium 4.2 Chloride 107 Carbon Dioxide 24 Anion Gap 13 BUN 16 Creatinine 1.47 H 1.47 H Estim Creat Clear Calc 42.8 42.8 Estimated GFR 49 POC Glucose Random Glucose Calcium Hepatitis C Ab (EIA) HIV 1&2 Ab/P24 Ag 4thGn 09/23/24 09/23/24 05:51 07:11 Hold Purple Top Sodium Potassium Chloride Carbon Dioxide Anion Gap BUN Creatinine Estim Creat Clear Calc Estimated GFR 49 POC Glucose 98 Random Glucose 85 Calcium 9.3 Hepatitis C Ab (EIA) Reactive H HIV 1&2 Ab/P24 Ag 4thGn Nonreactive Preliminary micro results at discharge 09/21/24 15:36 Blood Culture - Preliminary Blood - Venous No growth after 24 hours. 09/21/24 15:22 Blood Culture - Preliminary Blood - Venous No growth after 24 hours. Discharge Plan Discharge Anticipated Discharge Date/Time: 09/23/24 10:58 Patient Disposition: Home, Self-Care Discharge Diagnosis: Cellulitis, Abscess Drug abuse Referrals: [facility] for [facility] [Provider Group] - 09/24/24 8:00 am Referral Note: Manana por la manana, traiga consigo la carta de lechuga ultima dosis a la clinica. Physician,Unknown J [Primary Care Provider, Medical] - 1 Week Discharge Medications: New doxycycline monohydrate 100 mg capsule 100 mg PO BID Qty: 14 0RF Continued trazodone 150 mg tablet 150 mg PO BEDTIME losartan 50 mg tablet 50 mg PO DAILY Qty: 90 0RF amlodipine 10 mg tablet 10 mg PO DAILY Qty: 90 0RF Discontinued lisinopril 20 mg tablet 20 mg PO DAILY Discharge Orders: Discharge Order (Routine); Ordered 09/23/24 Ordered By: Bing Fernández Diet: Low salt diet Activity on Discharge: As tolerated Stand Alone Forms: Patient Portal Discharge page Print Language: Slovenian Care Plan Goals: Avoid using drugs Methadone 40 mg daily; follow as outpatinet Doxycycline 100 mg two times a day for 1 more week Take Amlodipine and Losartan for blood pressure control Follow with PCP for further management Follow with [facility] [place] surgery as outpatient for wound care Health Concerns: Cellulitis with abscess drug abuse Plan of Treatment: Antibiotics MEthadone Assessment: as above
--- NOTE | 2024-09-23 11:29 | HO.SKINPHOTO ---
Location: Right Upper Arm Cleaned with normal saline, pat dry, non-adherent gauze, gauze wrap. No drainage present, area firm.
[2024-09-23] MEDS: Naloxone HCl Nasal TAKE HOME 4 MG SPRAY 8 MG NOSTRILALT (13:18)
[2024-09-23 13:27] VITALS: BP 140/90; PULSE 100; RESP 14; TEMP 36.8; O2SAT 98
--- NOTE | 2024-09-24 05:56 | PM.EVENT ---
Event Note Date of Service: 09/24/24 Event Note: 5:32 AM - contacted by lab to notify patient's BC (2nd set) is positive for yeast. No contact information found. Stock Transfer Clerk notified and will attempt to contact patient. Time Spent With Patient Time: Total time managing care of this patient today ____ minutes.
--- NOTE | 2024-09-24 07:31 | PC.NURSE ---
Pt had positive blood culture reported by Dr. Harding to this com writer. There is no number on file or contact information. Attempted to contact [facility] Cw Operator [phone]. She could not confirm or deny patient. This com writer just requested if in fact he was if she could get a message to him to contact the hospital or return to ED.
[2024-09-27 08:43] LABS: HCV Log PCR <1.18 NOT DETECTED Log IU/mL (NOT DETECTED); HepC Viral Load <15 NOT DETECTED IU/mL (NOT DETECTED)
== END 2024-09-23 13:38 | disposition home or self-care (01) | DRG 603 ==
LOC: HO.ED 16:29 → HO.EDOVER 16:30 → HO.S3 09-22 10:10
PROVIDERS: Nurse Practitioner Psychiatric/Mental Health; Physician Assistant Medical; Admitting Provider Student in an Organized Health Care Education/Training Program; Emergency Provider Emergency Medicine; PCP Student in an Organized Health Care Education/Training Program; Visit Provider Student in an Organized Health Care Education/Training Program
DX: L02.413 Cutaneous abscess of right upper limb (principal); N17.9 Acute kidney failure, unspecified; F11.20 Opioid dependence, uncomplicated; B49 Unspecified mycosis; F14.10 Cocaine abuse, uncomplicated; L03.113 Cellulitis of right upper limb; I12.9 Hypertensive chronic kidney disease with stage 1 through stage 4 chronic kidney disease, or unspecified chronic kidney disease; N18.30 Chronic kidney disease, stage 3 unspecified; F17.210 Nicotine dependence, cigarettes, uncomplicated; Z71.6 Tobacco abuse counseling; T46.5X6A Underdosing of other antihypertensive drugs, initial encounter; Z79.899 Other long term (current) drug therapy
CPT/HCPCS: 36415; 80048; 80053; 80307; 81001; 82565; 82947; 83605; 84300; 85025; 85652; 85999; 86140; 86803; 87040; 87077; 87389; 87522; 99285; J1650; J2543; J3370

== ENCOUNTER → 2024-09-21 15:52 | Outpatient (BNV) | payer OTHER, SELFPAY | PROVIDERS: Admitting Provider Student in an Organized Health Care Education/Training Program; Emergency Provider Emergency Medicine; Visit Provider Student in an Organized Health Care Education/Training Program | DX: L03.113 Cellulitis of right upper limb (principal); L02.413 Cutaneous abscess of right upper limb; N17.9 Acute kidney failure, unspecified; N18.30 Chronic kidney disease, stage 3 unspecified; E87.5 Hyperkalemia | CPT/HCPCS: 99223; 99233; 99239; 99499 ==

== ENCOUNTER → 2024-09-21 15:52 | Outpatient (BNV) | payer OTHER, SELFPAY | PROVIDERS: Admitting Provider Student in an Organized Health Care Education/Training Program; Emergency Provider Emergency Medicine; Visit Provider Nurse Practitioner Psychiatric/Mental Health | DX: F11.90 Opioid use, unspecified, uncomplicated (principal) | CPT/HCPCS: 99231 ==

== ENCOUNTER → 2024-09-21 15:52 | Outpatient (BNV) | payer OTHER, SELFPAY | PROVIDERS: Admitting Provider Student in an Organized Health Care Education/Training Program; Emergency Provider Emergency Medicine | DX: L02.413 Cutaneous abscess of right upper limb (principal) | CPT/HCPCS: 10060; 99222 ==